=== PATIENT | female | born 1955 | race Two or more races ===

== ENCOUNTER 2020-04-18 07:21 | Outpatient (REF) | payer OTHER, SELFPAY | END 2020-04-18 07:22 | disposition home or self-care (01) | LOC: HO.LAB 07:21 | PROVIDERS: Visit Provider Internal Medicine | DX: Z20.828 Contact with and (suspected) exposure to other viral communicable diseases (principal) | CPT/HCPCS: C9803; U0003 ==

== ENCOUNTER 2020-04-24 10:17 | Emergency (ER) | payer OTHER, SELFPAY ==
--- NOTE | 2020-04-24 10:41 | ED.DIZZY ---
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 Mode of arrival: ambulatory Limitations: no limitations History of Present Illness MD elicited complaint: dizziness and lightheadedness Onset (ago): week(s) (2) Timing: gradual onset and intermittent Severity: moderate Description: lightheadedness Context: other (feels dehydrated) History of similar symptoms: Yes Exacerbating factors: change in body position Relieving factors: remaining still Associated symptoms: nausea and malaise Related Data Previous Rx's Medication Instructions Recorded meclizine 25 mg PO TID PRN #30 tab 04/24/20 ondansetron 4 mg PO Q8H PRN #20 tab 04/24/20 Allergies Allergy/AdvReac Type Severity Reaction Status Date / Time aspirin [Aspirin] Allergy Intermediate HIVES, rash Unverified 02/27/20 16:17 Review of Systems Review of Systems: Constitutional : No Weight loss, No Fever, No Chills, pos Fatigue, pos Malaise ENT/Mouth : No sore throat, No Rhinorrhea Eyes: No Eye Pain, No Swelling, No Redness Cardiovascular : No Chest Pain, No SOB, No Dyspnea on Exertion, No Orthopnea, No Edema, No Palpitations Respiratory : No Cough, No Sputum, No Wheezing Gastrointestinal : pos Nausea, No Vomiting, No Diarrhea, No Constipation, No abdominal Pain, No Hematochezia, No Melena Genitourinary : No Dysuria, No Urinary Frequency, No Hematuria, Musculoskeletal : No joint pain, No Myalgias, No Joint Swelling Skin : No Skin Lesions, No rash Neuro : No Weakness, No Numbness, pos Dizziness, No Headache Psych : No Anxiety/Panic, No Depression All other systems reviewed and are negative [facility] Past Medical History Attestation statement: The following information was validated with the patient. Medical History (Updated 04/24/20 @ 13:26 by Dolores Gomez DO) Fibromyalgia Surgical History (Updated 04/24/20 @ 11:02 by Dolores Gomez DO) H/O: hysterectomy Social History Social History (Updated 04/24/20 @ 11:02 by Dolores Gomez DO) Alcohol intake: never Smoking Status: Never smoker Use of substances other than those prescribed or required for medical reasons: No Advance Directives: No Advance Directives Information Provided: Yes Physical Exam Vital Signs: Vital Signs: Last Vital Signs Temp 98 F 04/24/20 12:00 Pulse 78 04/24/20 12:00 Resp 16 04/24/20 12:00 BP 118/68 04/24/20 12:00 Pulse Ox 99 04/24/20 12:00 Body Mass Index 32.9 Appearance: Alert. Oriented X3. No acute distress. Eyes: Pupils equal, round and reactive to light. ENT: Pharynx normal. Neck: Normal inspection. Neck supple. CVS: Normal heart rate and rhythm. Pulses normal. Respiratory: No respiratory distress. Breath sounds normal. Abdomen: Soft and nontender. Skin: Skin warm and dry. Normal skin color. Normal skin turgor. Extremities: No lower extremity edema. No calf ttp Neuro: Oriented X 3. No motor deficit. No sensory deficit. Course Course Course Narrative: no acute findings stable for DC, negative ortho VS feels much better, stable for DC MDM - Dizziness MDM Narrative Medical decision making narrative: 65 yo female with hx of fibromyalgia here with 2 weeks feels dehydrated with nausea, has benign abdominal exam, no neuro deficits, feeling lightheaded is positional, no GIB symptoms no CP/SOB will hydrate and obtain ortho VS, EKG, labs, dispo per results and findings. Lab Data Result diagrams: 04/24/20 11:16 04/24/20 11:16 Labs: Lab Results 04/24/20 04/24/20 04/24/20 Range/Units 11:16 11:16 11:16 WBC 4.9 (4.8-10.8) X10*3/uL RBC 4.66 (4.20-5.50) X10*6/uL Hgb 12.5 (12.0-16.0) g/dl Hct 38.2 (37-47) % MCV 82.0 (80-98) fL MCH 26.8 L (27.0-33.0) pg MCHC 32.7 (31.0-35.0) g/dl RDW 12.9 (11.0-16.0) % Plt Count 290 (160-400) X10*3/uL MPV 10.0 (9.4-12.3) fL Immature Gran % (Auto) 0.4 (0.0-0.4) % Neut % (Auto) 61.3 (45-73) % Lymph % (Auto) 27.0 (20-40) % [place] % (Auto) 9.9 (2-11) % Eos % (Auto) 1.0 (0-4) % Baso % (Auto) 0.4 (0-2) % Lymph # (Auto) 1.3 (1.2-4.9) X10*3/uL [place] # (Auto) 0.5 (0.1-1.2) X10*3/uL Eos # (Auto) 0.1 (0.0-0.4) X10*3/uL Baso # (Auto) 0.0 (0.0-0.2) X10*3/uL Abs Immat Gran (auto) 0.02 (0.00-0.03) X10*3/uL Absolute Neuts (auto) 3.0 (2.0-8.3) X10*3/uL Absolute Nucleated RBC 0.000 (0.0-0.012) X10*3/uL Nucleated RBC % (auto) 0.0 (0.0-0.2) /100WBC Hold Blue Top SEE NOTE Sodium 140 (135-145) mmol/L Potassium 3.9 (3.3-5.1) mmol/l Chloride 106 (96-108) mmol/L Carbon Dioxide 25 (22-29) mmol/L Anion Gap 13 (12-20) BUN 11 (9-16) mg/dL Creatinine 0.64 (0.5-1.4) mg/dL Estim Creat Clear Calc 78.8 Estimated GFR > 60 Random Glucose 86 (60-115) mg/dL Calcium 8.4 (8.4-10.2) mg/dL Magnesium 2.2 (1.6-2.6) mg/dL Total Bilirubin 0.7 (0.0-1.0) mg/dL Direct Bilirubin 0.3 (0.0-0.5) mg/dL AST 16 (5-31) U/L ALT 15 (0-31) U/L Alkaline Phosphatase 76 (39-117) U/L Troponin I High Sens (<3.5-17.0) ng/L Total Protein 6.4 L (6.5-8.0) g/dL Albumin 3.8 (3.5-5.0) g/dL Urine Color Urine Appearance Urine pH (5.0-8.0) Ur Specific [place] (1.005-1.025) Urine Protein (NEG-TRACE) MG/DL Urine Glucose (UA) (NEG) MG/DL Urine Ketones (NEG) MG/DL Urine Blood (NEG) Urine Nitrite (NEG) Ur Leukocyte Esterase (NEG) 04/24/20 04/24/20 Range/Units 11:16 12:49 WBC (4.8-10.8) X10*3/uL RBC (4.20-5.50) X10*6/uL Hgb (12.0-16.0) g/dl Hct (37-47) % MCV (80-98) fL MCH (27.0-33.0) pg MCHC (31.0-35.0) g/dl RDW (11.0-16.0) % Plt Count (160-400) X10*3/uL MPV (9.4-12.3) fL Immature Gran % (Auto) (0.0-0.4) % Neut % (Auto) (45-73) % Lymph % (Auto) (20-40) % [place] % (Auto) (2-11) % Eos % (Auto) (0-4) % Baso % (Auto) (0-2) % Lymph # (Auto) (1.2-4.9) X10*3/uL [place] # (Auto) (0.1-1.2) X10*3/uL Eos # (Auto) (0.0-0.4) X10*3/uL Baso # (Auto) (0.0-0.2) X10*3/uL Abs Immat Gran (auto) (0.00-0.03) X10*3/uL Absolute Neuts (auto) (2.0-8.3) X10*3/uL Absolute Nucleated RBC (0.0-0.012) X10*3/uL Nucleated RBC % (auto) (0.0-0.2) /100WBC Hold Blue Top Sodium (135-145) mmol/L Potassium (3.3-5.1) mmol/l Chloride (96-108) mmol/L Carbon Dioxide (22-29) mmol/L Anion Gap (12-20) BUN (9-16) mg/dL Creatinine (0.5-1.4) mg/dL Estim Creat Clear Calc Estimated GFR Random Glucose (60-115) mg/dL Calcium (8.4-10.2) mg/dL Magnesium (1.6-2.6) mg/dL Total Bilirubin (0.0-1.0) mg/dL Direct Bilirubin (0.0-0.5) mg/dL AST (5-31) U/L ALT (0-31) U/L Alkaline Phosphatase (39-117) U/L Troponin I High Sens < 3.5 (<3.5-17.0) ng/L Total Protein (6.5-8.0) g/dL Albumin (3.5-5.0) g/dL Urine Color YELLOW Urine Appearance HAZY Urine pH 6.5 (5.0-8.0) Ur Specific [place] 1.015 (1.005-1.025) Urine Protein NEG (NEG-TRACE) MG/DL Urine Glucose (UA) NEG (NEG) MG/DL Urine Ketones 15 (NEG) MG/DL Urine Blood NEG (NEG) Urine Nitrite NEG (NEG) Ur Leukocyte Esterase NEG (NEG) ECG Data Attestation: I personally reviewed and interpreted this ECG as follows: ECG interpretation date: 04/24/20 ECG interpretation time: 11:02 Interpretation: Rate: 78 Rhythm: NSR [place]: normal Normal P waves. Normal WILLIAM. Normal QRS complex. ST T wave : normal qTC: normal prior studies: no acute ischemia The study has been interpreted contemporaneously by me. . Discharge Plan Discharge Clinical Impression: Acute dehydration Patient Disposition: Home, Self-Care Instructions: Dehydration (ED) Additional Instructions: return to ED for any worsening symptoms or concerns Prescriptions: New meclizine 25 mg tablet 25 mg PO TID PRN (Reason: dizziness) Qty: 30 RF: 0 ondansetron 4 mg tablet,disintegrating 4 mg PO Q8H PRN (Reason: nausea and vomiting) Qty: 20 RF: 0 Referrals: Danae Sy MD [Primary Care Provider] - 2 days (if not better) Print Language: Norwegian
--- NOTE | 2020-04-24 10:45 | ECG_ITS ---
Test Reason : SOB Blood Pressure : / mmHG Vent. Rate : 078 BPM Atrial Rate : 078 BPM P-R Int : 128 ms QRS Dur : 078 ms QT Int : 382 ms P-R-T Axes : 012 018 021 degrees QTc Int : 435 ms Normal sinus rhythm Normal ECG When compared with ECG of 10-MAR-2012 15:39, No significant change was found Referred By: Dolores Gomez Electronically Signed By:FADY JIMÉNEZ MD
[2020-04-24 10:49] VITALS: BP 140/65; PULSE 87; RESP 18; TEMP 36.8; O2SAT 98; BMI 32.9
[2020-04-24 11:22] VITALS: BP 115/55; PULSE 71
[2020-04-24 11:22] LABS: MANUAL DIFF FLAG NO
[2020-04-24 11:24] VITALS: BP 118/65; PULSE 98
[2020-04-24 11:26] VITALS: BP 115/75; PULSE 95
[2020-04-24 11:33] LABS: Basophils Percent Auto 0.4 % (0-2); Eosinophils Absolute Auto 0.1 X10*3/uL (0.0-0.4); Hematocrit 38.2 % (37-47); Hemoglobin 12.5 g/dl (12.0-16.0); Imm Gran Abs Auto 0.02 X10*3/uL (0.00-0.03); Imm Gran Pct Auto 0.4 % (0.0-0.4); Lymphocytes Absolute Auto 1.3 X10*3/uL (1.2-4.9); Mean Corpuscular HGB Conc 32.7 g/dl (31.0-35.0); Mean Corpuscular Hemoglobin 26.8 pg (27.0-33.0); Monocytes Absolute Auto 0.5 X10*3/uL (0.1-1.2); Monocytes Percent Auto 9.9 % (2-11); Neutrophils Percent Auto 61.3 % (45-73); Platelet Count 290 X10*3/uL (160-400); Red Blood Count 4.66 X10*6/uL (4.20-5.50); Red Cell Distribution Width 12.9 % (11.0-16.0); White Blood Count 4.9 X10*3/uL (4.8-10.8)
[2020-04-24] MEDS: ondansetron HCL 4 MG/2 ML VIAL IVPUSH (11:45)
[2020-04-24] MEDS: 0.9 % Sodium Chloride 1,000 ML 999 ML IVCONT (11:45)
[2020-04-24 11:48] LABS: Alanine Aminotransferase 15 U/L (0-31); Albumin Level 3.8 g/dL (3.5-5.0); Alkaline Phosphatase 76 U/L (39-117); Anion Gap 13 (12-20); Aspartate Amino Transferase 16 U/L (5-31); Bilirubin Direct 0.3 mg/dL (0.0-0.5); Bilirubin Total 0.7 mg/dL (0.0-1.0); Blood Urea Nitrogen 11 mg/dL (9-16); Calcium 8.4 mg/dL (8.4-10.2); Carbon Dioxide 25 mmol/L (22-29); Chloride 106 mmol/L (96-108); Creatinine Clr Calc Pharmacy 78.8; Estimated Glomerular Filt Rate > 60; Glucose Random 86 mg/dL (60-115); Magnesium 2.2 mg/dL (1.6-2.6); Potassium 3.9 mmol/l (3.3-5.1); Sodium 140 mmol/L (135-145); Total Protein 6.4 g/dL (6.5-8.0)
[2020-04-24 11:55] LABS: Troponin-I High Sensitivity < 3.5 ng/L (<3.5-17.0)
[2020-04-24 12:00] VITALS: BP 118/68; PULSE 78; RESP 16; TEMP 36.6; O2SAT 99
[2020-04-24 12:57] LABS: Glucose Urine UA NEG (NEG); Leukocyte Esterase Urine NEG (NEG); Nitrite Urine NEG (NEG); PH 6.5 (5.0-8.0); Specific Gravity - Urine 1.015 (1.005-1.025); Urine Blood NEG (NEG); Urine Ketones 15 MG/DL (NEG); Urine Protein NEG (NEG-TRACE)
[2020-04-24 13:00] LABS: Appearance Urine HAZY; Color Urine YELLOW
== END 2020-04-24 14:21 | disposition home or self-care (01) ==
PROVIDERS: Emergency Provider Emergency Medicine; PCP Pediatrics
DX: E86.0 Dehydration (principal); R42 Dizziness and giddiness; Z79.899 Other long term (current) drug therapy
CPT/HCPCS: 36415; 80048; 80076; 81003; 83735; 84484; 85025; 93005; 96361; 96374; 99284; J2405

== ENCOUNTER 2020-11-17 09:00 | Outpatient (REF) | payer OTHER, SELFPAY ==
--- NOTE | ~2020-11-17 | MM_ITS ---
EXAMINATION: MM SCREENING DIGITAL BREAST TOMOSYNTHESIS, BILATERAL CLINICAL INFORMATION: Screening. Asymptomatic. The lifetime risk of breast cancer based on the Tyrer-Cuzick Model is 5%. COMPARISON: Mammography: 09/26/2019, 04/22/2019, 12/14/2017; targeted left breast ultrasound 09/26/2019 TECHNIQUE: Digital breast tomosynthesis is performed in both the craniocaudal and mediolateral oblique views along with computer-aided detection (CAD). Synthesized 2D images are generated from the tomosynthesis. FINDINGS: There are scattered areas of fibroglandular density (ACR BI-RADS breast composition Category b). There are no significant masses, abnormal calcifications, or other abnormalities. Parenchymal pattern is similar to prior studies. No developing density. The axilla and skin contours are unremarkable. MM/MM tomosynthesis screening BI IMPRESSION: No mammographic evidence of malignancy. ASSESSMENT: BI-RADS 1: Negative RECOMMENDATION: Routine annual mammography screening. This patient's information was entered into a reminder system with a target due date for their next mammogram.
== END 2020-11-17 09:01 | disposition home or self-care (01) ==
LOC: HO.MAMMO 09:00
PROVIDERS: Visit Provider Pediatrics
DX: Z12.31 Encounter for screening mammogram for malignant neoplasm of breast (principal)
CPT/HCPCS: 77063; 77067

== ENCOUNTER 2020-12-04 14:09 | Outpatient (REF) | payer OTHER, SELFPAY ==
--- NOTE | ~2020-12-04 | MM_ITS ---
EXAMINATION: BONE DENSITOMETRY CLINICAL INDICATION: Encounter for screening for osteoporosis, postmenopausal. COMPARISON: Baseline BD dated 05/03/2016. TECHNIQUE: Using a [employer] DXA System (software version: 13.1) manufactured by [employer], dual-energy x-ray absorptiometry was performed of the lumbar spine and left hip. The images are of good technical quality. Summary results are attached. FINDINGS: AP SPINE L1-L4: Current: BMD 1.152 g/cm2, Z-score 0.7, T-score -0.2, normal, 2.5% increase from baseline (<5% change is not significant). Baseline: BMD 1.124 g/cm2. LEFT FEMUR, NECK: Current: BMD 1.023 g/cm2, Z-score 0.9, T-score -0.1, normal. Baseline: BMD 1.036 g/cm2. LEFT FEMUR, TOTAL: Current: BMD 1.055 g/cm2, Z-score 1.1, T-score 0.4, normal, 1.3% decrease from baseline (<5% change is not significant). Baseline: BMD 1.069 g/cm2. IDENTIFIED RISK FACTORS: Secondary osteoporosis, (early menopause). Anticonvulsant. Bilateral oophorectomy. Hysterectomy. Thiazide. HISTORY OF FRACTURE: None listed. MEDICATIONS: Vitamin D. MM/XR DEXA axial skeleton IMPRESSION: 1. DIAGNOSIS: Normal bone density based on the lowest T-score value of -0.2 in the lumbar spine applying World Health Organization criteria. 2. 10-YEAR FRACTURE RISK PREDICTION, FRAX: Major osteoporotic fracture (clinical spine, forearm, hip or shoulder) 3.4%. Hip fracture 0.1%. 3. Treatment Recommendations: NOF guidelines recommend consideration for treatment in postmenopausal women and men age 50 and older presenting with the following: -A hip or vertebral (clinical or morphometric) fracture. -T-score less than or equal to -2.5 at the femoral neck or spine after appropriate evaluation to exclude secondary causes. -Low bone mass at the hip or spine and a 10-year fracture probability by FRAX of greater than or equal to 3% for hip fracture or greater than or equal to 20% for major osteoporotic fracture based on the [place] adapted WHO algorithm. 4. Other Recommendations: All treatment decisions require clinical judgment and consideration of individual patient factors, including patient preferences, comorbidities, previous drug use, risk factors not captured in the FRAX model (e.g. frailty, falls, vitamin D deficiency, increased bone turnover, interval significant decline in bone density) and possible under or overestimation of fracture risk by FRAX. FUTURE SCAN RECOMMENDATION: People with diagnosed cases of osteoporosis or at high risk for fracture should have regular bone mineral density tests. For patients eligible for Medicare, routine testing is allowed once every 2 years. The testing frequency can be increased to one year for patients who have rapidly progressing disease, those who are receiving or discontinuing medical therapy to restore bone mass, or have additional risk factors.
== END 2020-12-04 14:10 | disposition home or self-care (01) ==
LOC: HO.MAMMO 14:09
PROVIDERS: Visit Provider Pediatrics
DX: Z13.820 Encounter for screening for osteoporosis (principal); M81.0 Age-related osteoporosis without current pathological fracture; Z78.0 Asymptomatic menopausal state; Z98.890 Other specified postprocedural states; Z79.899 Other long term (current) drug therapy
CPT/HCPCS: 77080

== ENCOUNTER 2020-12-30 13:40 | Emergency (ER) | payer OTHER, SELFPAY ==
[2020-12-30 13:47] VITALS: BP 136/65; PULSE 87; RESP 16; TEMP 36.9; O2SAT 98; BMI 34.3
--- NOTE | 2020-12-30 17:53 | ED_ITS ---
HPI - General Adult General Chief complaint: Allergic Reaction Stated complaint: eye pain Time Seen by Provider: 12/30/20 17:52 Related Data Previous Rx's Medication Instructions Recorded meclizine 25 mg PO TID PRN #30 tab 04/24/20 ondansetron 4 mg PO Q8H PRN #20 tab 04/24/20 cephalexin 500 mg PO QID 7 Days #28 cap 12/30/20 diphenhydramine HCl [Benadryl] 25 mg PO BEDTIME PRN #20 cap 12/30/20 loratadine 10 mg PO DAILY #20 tab 12/30/20 prednisone 40 mg PO DAILY 5 Days #10 tab 12/30/20 Allergies Allergy/AdvReac Type Severity Reaction Status Date / Time aspirin [Aspirin] Allergy Intermediate HIVES, rash Verified 12/30/20 13:50 Review of Systems Review of Systems: Constitutional : No Weight loss, No Fever, No Chills, No Night Sweats, No Fatigue, No Malaise ENT/Mouth : No Hearing loss, No Ear Pain, No Nasal Congestion, No Sinus Pain, No Hoarseness, No sore throat, No Rhinorrhea, No Swallowing Difficulty Eyes: No Eye Pain, No Swelling, No Redness, No Foreign Body, No Discharge, No Vision Changes Respiratory : No Cough, No Sputum, No Wheezing, No Smoke Exposure, No Dyspnea Musculoskeletal : No joint pain, No Myalgias, No Joint Swelling Skin : No Skin Lesions, No rash Neuro : No Weakness, No Numbness, No Paresthesias, No Loss of Consciousness, No Dizziness, No Headache Psych : No Anxiety/Panic, No Depression, No SI/HI/AH/VH, No Social Issues, Heme/Lymph: No Bruising, No Bleeding,No Lymphadenopathy Endocrine : No Polyuria, No Polydipsia, No Temperature Intolerance Yes all other systems are reviewed and are negative [facility] Past Medical History Medical History (Updated 12/31/20 @ 00:02 by Carole Alexandre) Fibromyalgia Surgical History H/O: hysterectomy Social History Social History (Updated 04/24/20 @ 11:02 by Dolores Gomez DO) Alcohol intake: never Advance Directives: No Advance Directives Information Provided: Yes Physical Exam Vital Signs: Vital Signs: Last Vital Signs Temp 98.4 F 12/30/20 13:47 Pulse 87 12/30/20 13:47 Resp 16 12/30/20 13:47 BP 136/65 12/30/20 13:47 Pulse Ox 98 12/30/20 13:47 Body Mass Index 34.3 Const: General: healthy appearing, no acute distress and well developed Nutritional Appearance: well nourished Orientation/consciousness: patient oriented x3 Eyes: Other: periorbital edema and redness bilaterally. Watery eyes. Conjunctivae: conjunctivae normal Sclerae: sclerae normal Corneas: corneas normal Pupils: Equal, round and reactive pupils present EOM: EOMs intact bilaterally Neck: Neck: Yes normal visual inspection, Yes full ROM and Yes trachea midline Thyroid: Thyroid normal Resp: Auscultation: clear to auscultation bilaterally Cardio: Rate: regular rate Rhythm: regular rhythm GI: Inspection: Yes normal to inspection and No distended Palpation (GI): No hepatosplenomegaly present Auscultation: normal bowel sounds Skin: General skin exam: elasticity normal, turgor normal and dry skin Neuro: General: patient oriented x3 Cranial nerves: Yes Equal, round and reactive pupils present Course Course Course Narrative: 65-year-old female is here today for complaining of bilateral eyes itchy and red for the last few days. patient reports that she does have allergies and is not taking anything for it. I will medicate her with loratadine, prednisone, cephalexin. Patient will be sent home with script for loratadine, prednisone, cephalexin. She will follow-up with her PCP in 2-3 days. Patient denies any other symptoms. Denies tinnitus, headaches, dizziness, cough or any respiratory symptoms. Patient will return if her symptoms get worse. Patient is agreeable to plan of care and verbalizes understanding of instructions. She was given the opportunity to ask questions and all questions answered. Discharge Plan Discharge Clinical Impression: Contact dermatitis, Complaint of seasonal allergic reaction Patient Disposition: Home, Self-Care Instructions: Allergies (ED) Additional Instructions: Hoy te vieron aqu? por enrojecimiento y picaz?n en los ojos. Le dieron medicamentos para ayudar con mitchel alergias. Lo enviar?n a casa con medicamentos para la alergia, as? meet con prednisona y antibi?ticos. Tambi?n puede isidro Benadryl para ayudar con las alergias rogers la noche. [place]lynn un seguimiento con garibay PCP en 2-3 d?as. Puede regresar al departamento de emergencias si mitchel s?ntomas empeoran o si experimenta alg?n s?ntoma adicional preocupante Prescriptions: New loratadine 10 mg tablet 10 mg PO DAILY Qty: 20 RF: 0 prednisone 20 mg tablet 40 mg PO DAILY 5 Days Qty: 10 RF: 0 cephalexin 500 mg capsule 500 mg PO QID 7 Days Qty: 28 RF: 0 diphenhydramine HCl [Benadryl] 25 mg capsule 25 mg PO BEDTIME PRN (Reason: allergic reaction) Qty: 20 RF: 0 No Action meclizine 25 mg tablet 25 mg PO TID PRN (Reason: dizziness) Qty: 30 RF: 0 ondansetron 4 mg tablet,disintegrating 4 mg PO Q8H PRN (Reason: nausea and vomiting) Qty: 20 RF: 0 Interventions: ED Discharge Assessment Last Done: 12/30/20 18:27 Discharge Date/Time: 12/30/20 18:28
[2020-12-30] MEDS: cephALEXin 500 MG CAPSULE PO (18:25)
[2020-12-30] MEDS: predniSONE 20 MG TABLET 40 MG PO (18:25)
[2020-12-30] MEDS: Loratadine 10 MG TABLET PO (18:25)
== END 2020-12-30 18:28 | disposition home or self-care (01) ==
PROVIDERS: Emergency Provider Emergency Medicine; PCP Pediatrics
DX: L25.9 Unspecified contact dermatitis, unspecified cause (principal); Z91.09 Other allergy status, other than to drugs and biological substances
CPT/HCPCS: 99283

== ENCOUNTER 2021-01-22 09:59 | Outpatient (REF) | payer OTHER, SELFPAY ==
--- NOTE | ~2021-01-22 | XR_ITS ---
EXAMINATION: XR LUMBOSACRAL SPINE WITH OBLIQUES CLINICAL INFORMATION: Back pain with left-sided sciatica. COMPARISON: Lumbar spine radiographs dated 04/25/2014. TECHNIQUE: AP, lateral, coned down, and bilateral oblique views of the lumbar spine. FINDINGS: There appears to be transitional anatomy with partial sacralization of the L5 vertebral body, unchanged. No acute fracture or subluxation. No loss of vertebral body height. Mild multilevel loss of intervertebral disc height with small endplate osteophytes. Lower lumbar spine facet arthropathy. No lytic or blastic osseous lesion. No abnormal soft tissue calcification. XR/XR lumbar spine 4V min IMPRESSION: Mild multilevel degenerative disc disease, slightly progressed when compared to the prior examinations with lower lumbar spine facet arthropathy.
== END 2021-01-22 10:00 | disposition home or self-care (01) ==
LOC: HO.XRAY 09:59
PROVIDERS: PCP Pediatrics; Visit Provider General Practice
DX: M54.42 Lumbago with sciatica, left side (principal)
CPT/HCPCS: 72110

== ENCOUNTER 2021-02-18 10:04 | Outpatient (RCR) | payer OTHER, SELFPAY | END 2021-02-25 14:23 | disposition home or self-care (01) | LOC: HO.PT 10:04 | PROVIDERS: PCP Pediatrics; Visit Provider General Practice | DX: M54.42 Lumbago with sciatica, left side (principal) | CPT/HCPCS: 97110; 97112; 97161 ==

== ENCOUNTER → 2021-04-29 14:58 | Outpatient (BNVA) | payer OTHER, SELFPAY | PROVIDERS: PCP Pediatrics; Visit Provider Surgery Vascular Surgery | DX: I83.12 Varicose veins of left lower extremity with inflammation (principal); M79.7 Fibromyalgia; Z88.6 Allergy status to analgesic agent; Z79.52 Long term (current) use of systemic steroids; Z79.899 Other long term (current) drug therapy | CPT/HCPCS: 99212 ==

== ENCOUNTER 2021-05-19 08:03 | Outpatient (REF) | payer OTHER, SELFPAY ==
--- NOTE | ~2021-05-19 | US_ITS ---
EXAMINATION: BILATERAL LOWER EXTREMITY VENOUS ULTRASOUND (Reflux Exam) CLINICAL INDICATION: Varicose veins of left lower extremity with inflammation. COMPARISON: None. TECHNIQUE: Color-flow triplex imaging and compression Doppler was performed to evaluate both the deep and the superficial systems bilaterally. To evaluate the superficial system, the examination was performed in the upright position. Color-flow Doppler ultrasound and compression ultrasound were utilized. In addition, maneuvers were utilized to demonstrate reflux. FINDINGS: - SUPERFICIAL ULTRASOUND WITH DOPPLER OF RIGHT LOWER EXTREMITY GREAT SAPHENOUS VEIN: Saphenofemoral junction: 0.8 cm; Reflux: No evidence of reflux. Max diameter: 0.8 cm Min diameter: 0.2 cm Reflux: No evidence of reflux. DUPLICATED MEDIAL GREAT SAPHENOUS VEIN: Max Diameter: None imaged. Reflux: NA. DUPLICATED LATERAL GREAT SAPHENOUS VEIN: Diameter: 0.3 cm proximally. Reflux: None. SMALL SAPHENOUS VEIN: Not seen. VEIN OF GIACOMINI: None imaged. PERFORATORS: Location: Proximal calf, 2 mm. Reflux: None. VARICOSITIES: Location: Proximal thigh, 3 mm. Reflux: None. - DEEP VENOUS ULTRASOUND OF THE RIGHT LOWER EXTREMITY: Common Femoral Vein: Compressible, normal respiratory variation and augmented flow. Femoral Vein: Compressible, normal color-flow and augmentation. Popliteal Vein: Compressible, normal augmentation. Deep Reflux: There is no evidence of reflux in the deep system in either the common femoral vein or the popliteal vein. Evans's Cyst: There is no evidence of a Evans's cyst. - SUPERFICIAL ULTRASOUND WITH DOPPLER OF LEFT LOWER EXTREMITY GREAT SAPHENOUS VEIN: Saphenofemoral junction: 0.7 cm; Reflux: No evidence of reflux. Max diameter: 0.7 Min diameter: 0.1 Reflux: There is segmental reflux at the proximal thigh up to 0.7 seconds. DUPLICATED MEDIAL GREAT SAPHENOUS VEIN: Max Diameter: None imaged. Reflux: NA. DUPLICATED LATERAL GREAT SAPHENOUS VEIN: Diameter: 0.2 proximally. Reflux: None. SMALL SAPHENOUS VEIN: Not visualized. VEIN OF GIACOMINI: None imaged. PERFORATORS: Location: Proximal calf, 1 mm. Reflux: None. VARICOSITIES: Location: Proximal thigh, 3 mm. Reflux: None. - DEEP VENOUS ULTRASOUND OF THE LEFT LOWER EXTREMITY: Common Femoral Vein: Compressible, normal respiratory variation and augmented flow. Femoral Vein: Compressible, normal color-flow and augmentation. Popliteal Vein: Compressible, normal augmentation. Deep Reflux: There is 0.8 seconds of reflux at the common femoral vein. Evans's Cyst: There is no evidence of a Evans's cyst. US/US venous duplex LE BI IMPRESSION: 1. Segmental left great saphenous venous insufficiency at the proximal thigh. 2. No right great saphenous venous insufficiency. 3. Neither small saphenous vein is identified. 4. Bilateral non-refluxing varicosities. 5. Deep venous insufficiency involving the left common femoral vein. 6. No evidence of DVT.
== END 2021-05-19 08:04 | disposition home or self-care (01) ==
LOC: HO.US 08:03
PROVIDERS: PCP Pediatrics; Visit Provider Surgery Vascular Surgery
DX: I83.12 Varicose veins of left lower extremity with inflammation (principal)
CPT/HCPCS: 93970

== ENCOUNTER → 2021-06-08 13:38 | Outpatient (BNVA) | payer OTHER, SELFPAY | PROVIDERS: PCP Pediatrics; Visit Provider Surgery Vascular Surgery | DX: I83.12 Varicose veins of left lower extremity with inflammation (principal) | CPT/HCPCS: 99212 ==

== ENCOUNTER 2021-08-12 12:21 | Outpatient (REF) | payer OTHER, SELFPAY ==
--- NOTE | ~2021-08-12 | XR_ITS ---
EXAMINATION: KNEE X-RAY CLINICAL INFORMATION: Pain COMPARISON: Previous x-rays of the right knee August 2016 and left knee February 2018 TECHNIQUE: Standing AP, lateral and sunrise view of both knees FINDINGS: Right: Bone alignment is normal. No fracture or dislocation is seen. There is arthritis at the medial femoral tibial and patellofemoral joints with joint space narrowing and osteophyte formation. There is a small joint effusion. Left: Bone alignment is normal. No fracture or dislocation is seen. There are small osteophytes at the patellofemoral joint. There is no joint effusion. There is a small osteophyte at the quadriceps tendon insertion to the patella. XR/XR knee LT 2V IMPRESSION: Degenerative changes, right greater than left.
--- NOTE | ~2021-08-12 | XR_ITS ---
EXAMINATION: KNEE X-RAY CLINICAL INFORMATION: Pain COMPARISON: Previous x-rays of the right knee August 2016 and left knee February 2018 TECHNIQUE: Standing AP, lateral and sunrise view of both knees FINDINGS: Right: Bone alignment is normal. No fracture or dislocation is seen. There is arthritis at the medial femoral tibial and patellofemoral joints with joint space narrowing and osteophyte formation. There is a small joint effusion. Left: Bone alignment is normal. No fracture or dislocation is seen. There are small osteophytes at the patellofemoral joint. There is no joint effusion. There is a small osteophyte at the quadriceps tendon insertion to the patella. XR/XR knee RT 2V IMPRESSION: Degenerative changes, right greater than left.
--- NOTE | ~2021-08-12 | XR_ITS ---
EXAMINATION: KNEE X-RAY CLINICAL INFORMATION: Pain COMPARISON: Previous x-rays of the right knee August 2016 and left knee February 2018 TECHNIQUE: Standing AP, lateral and sunrise view of both knees FINDINGS: Right: Bone alignment is normal. No fracture or dislocation is seen. There is arthritis at the medial femoral tibial and patellofemoral joints with joint space narrowing and osteophyte formation. There is a small joint effusion. Left: Bone alignment is normal. No fracture or dislocation is seen. There are small osteophytes at the patellofemoral joint. There is no joint effusion. There is a small osteophyte at the quadriceps tendon insertion to the patella. XR/XR knee standing BI IMPRESSION: Degenerative changes, right greater than left.
== END 2021-08-12 12:22 | disposition home or self-care (01) ==
LOC: HO.HOSX 12:21
PROVIDERS: Visit Provider Orthopaedic Surgery
DX: M17.11 Unilateral primary osteoarthritis, right knee (principal)
CPT/HCPCS: 20610; 73560; 73565; 99202; J1100

== ENCOUNTER → 2021-11-26 11:33 | Outpatient (BNVA) | payer OTHER, SELFPAY | PROVIDERS: PCP Pediatrics; Visit Provider Orthopaedic Surgery | DX: M17.11 Unilateral primary osteoarthritis, right knee (principal) | CPT/HCPCS: 99212 ==

== ENCOUNTER 2021-11-29 16:19 | Outpatient (REF) | payer OTHER, SELFPAY ==
--- NOTE | ~2021-11-29 | XR_ITS ---
EXAMINATION: XR ANKLE, RIGHT CLINICAL INFORMATION: Sprain COMPARISON: None TECHNIQUE: AP, lateral, and mortise views of the right ankle. FINDINGS: Bone alignment is normal. No fracture or dislocation is seen. The ankle mortise is normal. There are calcaneal spurs. Soft tissues are otherwise normal. XR/XR ankle RT 2V IMPRESSION: Calcaneal spurs otherwise unremarkable exam.
== END 2021-11-29 16:20 | disposition home or self-care (01) ==
LOC: HO.XRAY 16:19
PROVIDERS: PCP Pediatrics; Visit Provider Pediatrics
DX: S93.401A Sprain of unspecified ligament of right ankle, initial encounter (principal)
CPT/HCPCS: 73600

== ENCOUNTER → 2022-04-18 11:52 | Outpatient (BNVA) | payer OTHER, SELFPAY | PROVIDERS: PCP Pediatrics; Visit Provider Orthopaedic Surgery | DX: M17.11 Unilateral primary osteoarthritis, right knee (principal) | CPT/HCPCS: 20610; 99212; J1100 ==

== ENCOUNTER 2023-01-06 08:33 | Outpatient (REF) | payer OTHER, SELFPAY ==
--- NOTE | ~2023-01-06 | MM_ITS ---
EXAMINATION: MM SCREENING DIGITAL BREAST TOMOSYNTHESIS, BILATERAL CLINICAL INFORMATION: Screening. Asymptomatic. The lifetime risk of breast cancer based on the Tyrer-Cuzick Model is 4%. COMPARISON: Mammography: 11/17/2020, and dating back to 2017. TECHNIQUE: Digital breast tomosynthesis is performed in both the craniocaudal and mediolateral oblique views along with computer-aided detection (CAD). Synthesized 2D images are generated from the tomosynthesis. FINDINGS: The breasts are heterogeneously dense, which may obscure small masses (ACR BI-RADS breast composition Category c). There is a stable somewhat nodular heterogeneously dense parenchymal pattern in both breasts. The overall appearance has remained unchanged as far back as 2017. There are 2 stable nodular asymmetries in the anterior left breast at the approximate 8:00 position, anterior one third, which proved to represent small cysts on previous ultrasound. There is an unchanged parenchymal asymmetry in the left breast CC view far medial, middle one third, unchanged and benign. There are no findings suspicious for malignancy. MM/MM tomosynthesis screening BI IMPRESSION: No mammographic evidence of malignancy. Stable benign findings as detailed. ASSESSMENT: BI-RADS BI-RADS 2 - Benign Findings RECOMMENDATION: Routine annual mammography screening. 1 year F/U This examination should not preclude the clinical evaluation of a suspicious palpable abnormality. This patient's information was entered into a reminder system with a target due date for their next mammogram.
--- NOTE | ~2023-01-06 | MM_ITS ---
EXAMINATION: BONE DENSITOMETRY CLINICAL INDICATION: Osteopenia. COMPARISON: Previous BD dated 12/04/2020 and baseline BD dated 05/03/2016. TECHNIQUE: Using a [employer] DXA System (software version: 13.1) manufactured by [employer], dual-energy x-ray absorptiometry was performed of the lumbar spine and left hip. The images are of good technical quality. Summary results are attached. FINDINGS: LEFT FEMUR, NECK: Current: BMD 1.015 g/cm2, Z-score 1.1, T-score -0.2, normal. Prior: BMD 1.023 g/cm2. Baseline: BMD 1.036 g/cm2. LEFT FEMUR, TOTAL: Current: BMD 1.058 g/cm2, Z-score 1.3, T-score 0.4, normal, 0.3% increase from previous, 1.0% decrease from baseline (<5% change is not significant). Prior: BMD 1.055 g/cm2. Baseline: BMD 1.069 g/cm2. AP SPINE L1-L4: Current: BMD 1.062 g/cm2, Z-score 0.2, T-score -1.0, normal, 7.8% decrease from previous, 5.5% decrease from baseline (<5% change is not significant). Prior: BMD 1.152 g/cm2. Baseline: BMD 1.124 g/cm2. IDENTIFIED RISK FACTORS: Menopause, hysterectomy, bilateral oophorectomy, recurrent falls. HISTORY OF FRACTURE: None listed. MEDICATIONS: Vitamin D. MM/XR DEXA axial skeleton IMPRESSION: 1. DIAGNOSIS: Normal bone density based on the lowest T-score value of -1.0 in the lumbar spine applying World Health Organization criteria. 2. 10-YEAR FRACTURE RISK PREDICTION, FRAX: According to the guidelines, FRAX calculation should only be performed on patients in the osteopenia bone density category. Therefore, FRAX was not performed on this patient. 3. Treatment Recommendations: NOF guidelines recommend consideration for treatment in postmenopausal women and men age 50 and older presenting with the following: -A hip or vertebral (clinical or morphometric) fracture. -T-score less than or equal to -2.5 at the femoral neck or spine after appropriate evaluation to exclude secondary causes. -Low bone mass at the hip or spine and a 10-year fracture probability by FRAX of greater than or equal to 3% for hip fracture or greater than or equal to 20% for major osteoporotic fracture based on the [place] adapted WHO algorithm. 4. Other Recommendations: All treatment decisions require clinical judgment and consideration of individual patient factors, including patient preferences, comorbidities, previous drug use, risk factors not captured in the FRAX model (e.g. frailty, falls, vitamin D deficiency, increased bone turnover, interval significant decline in bone density) and possible under or overestimation of fracture risk by FRAX. FUTURE SCAN RECOMMENDATION: People with diagnosed cases of osteoporosis or at high risk for fracture should have regular bone mineral density tests. For patients eligible for Medicare, routine testing is allowed once every 2 years. The testing frequency can be increased to one year for patients who have rapidly progressing disease, those who are receiving or discontinuing medical therapy to restore bone mass, or have additional risk factors.
== END 2023-01-06 08:34 | disposition home or self-care (01) ==
LOC: HO.MAMMO 08:33
PROVIDERS: PCP Pediatrics; Visit Provider Pediatrics
DX: Z12.31 Encounter for screening mammogram for malignant neoplasm of breast (principal); Z13.820 Encounter for screening for osteoporosis; M85.851 Other specified disorders of bone density and structure, right thigh; Z78.0 Asymptomatic menopausal state
CPT/HCPCS: 77063; 77067; 77080

== ENCOUNTER → 2023-01-06 08:45 | Outpatient (BNV) | payer OTHER, SELFPAY | PROVIDERS: PCP Pediatrics; Visit Provider Radiology Diagnostic Radiology | DX: Z12.31 Encounter for screening mammogram for malignant neoplasm of breast (principal) | CPT/HCPCS: 77063; 77067; 77080 ==

== ENCOUNTER 2023-03-23 12:44 | Outpatient (AMB) | payer OTHER, SELFPAY ==
--- NOTE | 2023-03-23 12:47 | MHC.OFFVIS ---
Intake Intake Visit Reasons: ov- primary osteoarthritis, right knee Intake Note: Amanda is a 67 year old woman who presnets today for a follow up of her right knee, last injected on 04/18/2022. Patient reports that this injetion was helpful and she would like to repeat injection today Allergies aspirin [Aspirin] Allergy (Intermediate, Verified 08/12/21 14:02) HIVES, rash HPI ov- primary osteoarthritis, right knee HPI Details Amanda is a 68 year old woman with bilateral knee OA, who returns with complaints of right knee pain. She has a hx of relief from steroid injections in the past and would like to repeat this injection today. PFSH Medical History Fibromyalgia Surgical History H/O: hysterectomy Social History Alcohol intake: never Review of Systems Const All systems reviewed & are unremarkable except as noted in HPI and below Physical Exam Const General: no acute distress, alert and awake Orientation/consciousness: patient oriented x3 HEENT Head: Yes normocephalic and Yes atraumatic Eyes EOM: EOMs intact bilaterally Resp Effort & Inspection: normal respiratory effort and able to speak in complete sentences Cardio Jugular venous distension: no JVD Skin General skin exam: turgor normal Rashes: no rashes Neuro General: patient oriented x3 Extrem Other: Right Knee: Skin C/D/I No effusion Psych Appearance: grossly normal Affect: normal affect Attitude: cooperative Office Procedures Joint Injection/Drain Joint Injection/Drain Details: Injected 1 mL of Decadron and 3 mL 1% lidocaine and 3 mL of 0.25% Marcaine. Site was prepped using aseptic technique. Patient tolerated the procedure well. Primary Site: right knee Approach Used: anterolateral Coding 36424 - Large joint Procedure code (CPT) selection complete Results Reviewed Results Reviewed: 03/23/23 12:46 Lidocaine HCl 2 % MPF [Xylocaine 2 % MPF] 5 ml .ROUTE .STK-MED ONE 03/23/23 12:47 BUPivacaine MPF 0.25 % [Sensorcaine-MPF 0.25% 10 ML] 10 ml .ROUTE .STK-MED ONE dexAMETHasone sod phosphate [Decadron] 4 mg .ROUTE .STK-MED ONE Assessment & Plan Assessment & Plan (1) Arthritis of right knee: Code(s): M17.11 - Unilateral primary osteoarthritis, right knee Plan: This is a 68 year old woman with right knee OA. She has pain with daily activity and a hx of relief from steroid injections. I injected her right knee today, which she tolerated well. She can follow up prn. Plan Scribed for Ozzy Francisco MD by Anjum Ruiz medical delivery driver, on 03/23/23 at 1:00 PM, EST. Coding Level of Care Code Est Pt Level 3 (28424) Diagnoses Arthritis of right knee M17.11 CPT Codes Coding - 81339 Large joint: 63518 - Large joint ([id number])
== END 2023-03-23 13:03 | disposition home or self-care (01) ==
PROVIDERS: PCP Pediatrics; Visit Provider Orthopaedic Surgery
DX: M17.11 Unilateral primary osteoarthritis, right knee (principal)
CPT/HCPCS: 20610; 99212

== ENCOUNTER → 2023-03-23 12:44 | Outpatient (BNVA) | payer OTHER, SELFPAY | PROVIDERS: PCP Pediatrics; Visit Provider Orthopaedic Surgery | DX: M17.11 Unilateral primary osteoarthritis, right knee (principal) | CPT/HCPCS: 20610; 99212; J1100 ==

== ENCOUNTER 2023-08-31 10:57 | Outpatient (AMB) | payer OTHER, SELFPAY ==
--- NOTE | 2023-08-31 11:01 | A.OFFVIS_ITS ---
Intake Vital Signs 08/31/23 11:05 Height 5 ft 11 in Weight 172 lb BMI 24.0 Intake Visit Reasons: New Prob- Right foot pain Intake Note: Amanda 68 yr old female presents today for her right foot pain. States she fell down on approx around April. She feel on her back and is having pain in her foot as well. She is not sure how she injured her foot. Pain is mainly on her achilles and is painful when walking, or applying pressure. Her foot swells on and off. Patient sees Dr. Francisco and has hx of right knee Arthroscopic sx many years ago. Allergies aspirin [Aspirin] Allergy (Intermediate, Verified 08/31/23 11:05) HIVES, rash Medication List - Last Reconciled 08/31/23 by Darby Delong MD cephalexin 500 mg PO QID 7 days diphenhydramine HCl (Benadryl) 25 mg PO BEDTIME PRN duloxetine 60 mg PO DAILY loratadine 10 mg PO DAILY meclizine 25 mg PO TID PRN ondansetron 4 mg PO Q8H PRN HPI HPI Comments History of Present Illness Details Here with daughter who interpreted for her. Fell backwards last April, right foot hit the floor. Didn't see anyone at that time. Points to achilles as source of pain. Previous ankle xray 2021 showed calcaneal spur, which she says she is aware of. Last PT 2022 for knee pain. No bracing or injection. 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 MSK: Tender on right Achillis tendon insertion No tenderness over malleoli or plantar fascia. No ankle instability. No acute signs of inflammation, swelling, redness or warmth. Strength is 5/5 in all muscle groups tested. No increased tone noted. Neurological: Neurologic examination of the upper and lower extremities was nonfocal with intact sensation, muscle stretch reflexes and without focal motor deficits . Camilo?s negative bilaterally. Babinski was down going bilaterally. Clonus was negative. Gait is non-antalgic without loss of balance. Results Reviewed Results Reviewed: I independently reviewed the results of the following: Right ankle x-ray 2021 showed calcaneal spur I reviewed records from the following: PCP Assessment & Plan Assessment & Plan (1) Right Achilles tendinitis: Code(s): M76.61 - Achilles tendinitis, right leg (2) Calcaneal spur, right: Code(s): M77.31 - Calcaneal spur, right foot Plan Right achilles tendinitis. Advised elevation and icing when at home. Will refer to PT. We can trial night time splint, to be worn only when in bed, advised not to walk on this. Assessment and plan discussed with patient, and patient was agreeable. All questions were answered thoroughly. Darby Delong MD, UGO Board Certified, [place] Board of Physical Medicine and Rehabilitation (ABPMR) Board Certified, [place] Board of Electrodiagnostic Medicine (ABEM) Orders: Orders PT Evaluation and Treatment Today M76.61 - Achilles tendinitis, right leg, M77.31 - Calcaneal spur, right foot Coding Level of Care Code New Pt Level 4 (86336) Diagnoses Right Achilles tendinitis M76.61 Calcaneal spur, right M77.31
[2023-08-31 11:05] VITALS: BMI 24.0
== END 2023-08-31 11:29 | disposition home or self-care (01) ==
PROVIDERS: PCP Pediatrics; Visit Provider Physical Medicine & Rehabilitation
DX: M76.61 Achilles tendinitis, right leg (principal); M77.31 Calcaneal spur, right foot
CPT/HCPCS: 99204

== ENCOUNTER → 2023-08-31 10:57 | Outpatient (BNVA) | payer OTHER, SELFPAY | PROVIDERS: PCP Pediatrics; Visit Provider Physical Medicine & Rehabilitation | DX: M77.31 Calcaneal spur, right foot (principal); M76.61 Achilles tendinitis, right leg; Z91.81 History of falling | CPT/HCPCS: 99202 ==

== ENCOUNTER 2023-09-26 14:00 | Outpatient (RCR) | payer OTHER, SELFPAY ==
--- NOTE | 2023-09-11 15:25 | MHC.PT.EP ---
[facility] [place] Office [place] [facility] [place] Office [address] Jamie Monroe [address] [phone] F: [phone] F: [phone] F: [phone] F: [phone] Physical Therapy Plan of Care Date of Evaluation: 09/11/23 Date of Surgery: Diagnosis: CALCANEAL SPUR, Rt ACHILLES' TENDONITIS Assessment: 68 YO FEMALE REF TO PT W APPROX 2 MONTH H/O Rt ACHILLES' PAIN-> SHE FEELS ONSET GRADUALLY S/P FALL IN APR 2023. THE Pt RESIDES ALONE AND HAS A VIDEO SPECIALIST APPROX 15 HRS/WK. OBJECTIVE FINDINGS: LIMITED ANKLE DF AND EVER DMITRY, TERMINAL Rt KNEE EXTEN, Rt LE POSTERIOR CHAIN SOFT TISSUE RESTRICTION, AND PAIN Rt DISTAL ACHILLES' TENDON JUNCTION. FUNCTIONALLY, THE Pt HAS DECR BARBRA TO STANDING, INCR AMB-> W ALTERED GAIT MECH, AND INCR DIFFIC W STAIR NAVIGATION. THE Pt WOULD BENEFIT FROM PT TO ADDRESS THE ABOVE FINDINGS , DEV A HEP, AND GUIDE HER ON REGAINING HER FUNCTIONAL INDEPENDENCE. Frequency and Duration: The patient will be seen 2 x WK x 4 WKS Short Term Goals: *INITIATE HEP TO INCREASE ROM Rt ANKLE DF & EVERSION WELL INCR Rt KNEE TERMINAL EXT *IMPROVE SOFT TISSUE MOBILITY IN POSTERIOR CHAIN *DECR PAIN IN Rt ACHILLES TO 2-3/10 *IMPROVE FUNCTIONAL STRENGTH IN Rt LE Landing Signal Officer Goals: *Pt INDEP W HEP AND SX MGMT TECHN *Pt DEMON EFFICIENT GAIT ON LEVEL AND STAIRS *Pt DEMON SLS Rt x 10 SEC *Pt PERF 10 HEEL RAISES Rt Treatment Plan: Modalities to reduce pain, spasms and effusion. Manual therapy to restore motion and function. Therapeutic exercise to improve strength and flexibility. Neuromuscular re-education for posture and balance. Therapeutic activities to return to functional activities of daily living. Electronically signed by: PARESH VALDEZPT Please sign and return to therapist. Thank you for your referral.
--- NOTE | 2024-01-12 11:59 | MHC.PT.DC ---
[facility] [place] Office [place] Office [place] Office [address] Jamie Monroe [address] [phone] F: [phone] F: [phone] F: [phone] F: [phone] Physical Therapy Discharge Report Diagnosis: CALCANEAL SPUR, Rt ACHILLES' TENDONITIS Date of Surgery: Date of Evaluation: 09/11/23 Date of Discharge: 01/12/24 Treatments to Date: 2 Cancellations to Date: 4 No Shows to Date: 2 Discharge Status: Improved Function Independent with HEP Patient Elected to Stop Visit Non-compliance Discharge Summary: THE Pt WAS MOTIVATED AND PROGRESSING WELL IN PT-> SHE WAS PERF THER ACTIVITIES IN STANDING, INCR WT BEARING W/O ANY EXACERB OF HER SXS -> WE WERE EMPHASIZING HIP STABILIZATION. THE Pt IS DISCHARGED PER PT ATTENDANCE POLICY. Electronically signed by: PARESH VALDEZ,PT Please sign and return to therapist. Thank you for your referral.
== END 2024-01-12 12:00 | disposition home or self-care (01) ==
LOC: HO.PT 14:00
PROVIDERS: PCP Pediatrics; Visit Provider Physical Medicine & Rehabilitation
DX: M77.31 Calcaneal spur, right foot (principal); M76.61 Achilles tendinitis, right leg
CPT/HCPCS: 97110; 97140; 97162; 97530

== ENCOUNTER 2023-11-01 11:25 | Outpatient (REF) | payer OTHER, SELFPAY ==
--- NOTE | ~2023-11-01 | XR_ITS ---
EXAM: X-RAYS RIGHT KNEE X-RAYS RIGHT ANKLE CLINICAL INFORMATION: Achilles tendinitis right leg, compared to previous. COMPARISON: Right ankle 11/29/2021. Right knee 08/12/2021. TECHNIQUE: 3 views right knee. 3 views right ankle. FINDINGS: Right knee: The bones are diffusely demineralized. Trace joint effusion. Moderate narrowing of the medial compartment with medial marginal osteophytes. Degenerative changes with joint space narrowing and hypertrophic change in the patellofemoral joint. Right ankle: Persistent small plantar calcaneal spur. Redemonstration of moderate spurring at the dorsal aspect of the calcaneus at site of Achilles tendon insertion with increased calcification since 2021 exam. Ankle mortise is preserved. Lateral soft tissue swelling at the ankle. XR/XR ankle RT 2V IMPRESSION: 1. Moderate degenerative changes right knee. 2. Persistent small plantar calcaneal spur. Redemonstration of moderate spurring at the dorsal aspect of the calcaneus at site of Achilles tendon insertion with increased calcification since 2021 exam. 3. No displaced fracture. Recommend follow up imaging in 10-14 days if fracture is suspected.
--- NOTE | ~2023-11-01 | XR_ITS ---
EXAM: X-RAYS RIGHT KNEE X-RAYS RIGHT ANKLE CLINICAL INFORMATION: Achilles tendinitis right leg, compared to previous. COMPARISON: Right ankle 11/29/2021. Right knee 08/12/2021. TECHNIQUE: 3 views right knee. 3 views right ankle. FINDINGS: Right knee: The bones are diffusely demineralized. Trace joint effusion. Moderate narrowing of the medial compartment with medial marginal osteophytes. Degenerative changes with joint space narrowing and hypertrophic change in the patellofemoral joint. Right ankle: Persistent small plantar calcaneal spur. Redemonstration of moderate spurring at the dorsal aspect of the calcaneus at site of Achilles tendon insertion with increased calcification since 2021 exam. Ankle mortise is preserved. Lateral soft tissue swelling at the ankle. XR/XR knee RT 3V IMPRESSION: 1. Moderate degenerative changes right knee. 2. Persistent small plantar calcaneal spur. Redemonstration of moderate spurring at the dorsal aspect of the calcaneus at site of Achilles tendon insertion with increased calcification since 2021 exam. 3. No displaced fracture. Recommend follow up imaging in 10-14 days if fracture is suspected.
== END 2023-11-01 11:26 | disposition home or self-care (01) ==
LOC: HO.HOSX 11:25
PROVIDERS: PCP Pediatrics; Visit Provider Physical Medicine & Rehabilitation
DX: M17.11 Unilateral primary osteoarthritis, right knee (principal); M77.31 Calcaneal spur, right foot; M76.61 Achilles tendinitis, right leg
CPT/HCPCS: 73562; 73600; 99212

== ENCOUNTER 2023-11-01 11:25 | Outpatient (AMB) | payer OTHER, SELFPAY ==
[2023-11-01 11:27] VITALS: BMI 22.6
--- NOTE | 2023-11-01 11:27 | MHC.OFFVIS ---
Vital Signs 11/01/23 11:27 Height 5 ft 11 in Weight 162 lb BMI 22.6 Intake Visit Reasons: OV-Right foot pain Intake Note: Amanda is a 68 year old female who presents today for a follow up of her right achilles tendonitis. At her last visit she was given an Physical Therapy order and a night splint to trial. Patient reports that she is still having pain in the Achilles tendon, increased pain with walking. She is also complaining of pain in the medial aspect of the knee, hx of right knee done with NE Right Knee Injection done with Ozzy Francisco in march of 2023 [employer] Safety Engineer Required: Yes [employer] Safety Engineer Name: [id number] Allergies aspirin [Aspirin] Allergy (Intermediate, Verified 08/31/23 11:05) HIVES, rash Medication List - Last Reconciled 11/01/23 by Darby Delong MD cephalexin 500 mg PO QID 7 days diphenhydramine HCl (Benadryl) 25 mg PO BEDTIME PRN duloxetine 60 mg PO DAILY loratadine 10 mg PO DAILY meclizine 25 mg PO TID PRN ondansetron 4 mg PO Q8H PRN HPI Comments Details: Fell backwards last April, right foot hit the floor. Didn't see anyone at that time. Pointed to achilles as source of pain. Previous ankle xray 2021 showed calcaneal spur, which she says she is aware of. Last PT 2022 for knee pain. No bracing or injection. Patient wears the boot for night time use. Been going to PT. Says pain on plantar fascia is improved with PT, but still has pain on achilles, constant. 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 MSK: Tender on right Achillis tendon insertion. No swelling or redness. No tenderness over malleoli or plantar fascia. No ankle instability. No acute signs of inflammation, swelling, redness or warmth. Strength is 5/5 in all muscle groups tested. No increased tone noted. Neurological: Neurologic examination of the upper and lower extremities was nonfocal with intact sensation, muscle stretch reflexes and without focal motor deficits . Camilo?s negative bilaterally. Babinski was down going bilaterally. Clonus was negative. Gait is non-antalgic without loss of balance. Results Reviewed Results Reviewed: I independently reviewed the results of the following: Right ankle x-ray 2021 showed calcaneal spur Ordering Physician: Danae Sy MD Date of Service: 11/29/21 Procedure(s): XR ankle RT 2V Accession Number(s): [id number] cc: Danae Sy MD~ EXAMINATION: XR ANKLE, RIGHT CLINICAL INFORMATION: Sprain COMPARISON: None TECHNIQUE: AP, lateral, and mortise views of the right ankle. FINDINGS: Bone alignment is normal. No fracture or dislocation is seen. The ankle mortise is normal. There are calcaneal spurs. Soft tissues are otherwise normal. XR/XR ankle RT 2V IMPRESSION: Calcaneal spurs otherwise unremarkable exam. Ordering Physician: Ozzy Francisco MD Date of Service: 08/12/21 Procedure(s): XR knee LT 2V Accession Number(s): [id number] cc: Ozzy Francisco MD~ EXAMINATION: KNEE X-RAY CLINICAL INFORMATION: Pain COMPARISON: Previous x-rays of the right knee August 2016 and left knee February 2018 TECHNIQUE: Standing AP, lateral and sunrise view of both knees FINDINGS: Right: Bone alignment is normal. No fracture or dislocation is seen. There is arthritis at the medial femoral tibial and patellofemoral joints with joint space narrowing and osteophyte formation. There is a small joint effusion. Left: Bone alignment is normal. No fracture or dislocation is seen. There are small osteophytes at the patellofemoral joint. There is no joint effusion. There is a small osteophyte at the quadriceps tendon insertion to the patella. XR/XR knee LT 2V IMPRESSION: Degenerative changes, right greater than left. I reviewed records from the following: Ortho Assessment & Plan Assessment & Plan (1) Arthritis of right knee: Code(s): M17.11 - Unilateral primary osteoarthritis, right knee Category: Medical (2) Right Achilles tendinitis: Code(s): M76.61 - Achilles tendinitis, right leg Category: Medical (3) Calcaneal spur, right: Code(s): M77.31 - Calcaneal spur, right foot Category: Medical Plan Been following patient for right ankle/foot pain. Plantar fascia improved with PT and night splint. Still with signs of achilles tendinitis. Will refer her to Dr. Alejo, Pain Management, for possible right achilles injection under US guidance. Patient eager to proceed with this plan. She wants to follow back with Dr. Francisco for knee injection. Will update xrays today, ankle and knee, right, as last done 2021. Assessment and plan discussed with patient, and patient was agreeable. All questions were answered thoroughly. Darby Delong MD, UGO Board Certified, [place] Board of Physical Medicine and Rehabilitation (ABPMR) Board Certified, [place] Board of Electrodiagnostic Medicine (ABEM) Orders: Orders XR knee RT 3V Today M17.11 - Unilateral primary osteoarthritis, right knee, M76.61 - Achilles tendinitis, right leg, M77.31 - Calcaneal spur, right foot XR ankle RT 2V Today M17.11 - Unilateral primary osteoarthritis, right knee, M76.61 - Achilles tendinitis, right leg, M77.31 - Calcaneal spur, right foot Referrals Pain Management Referral M76.61 - Achilles tendinitis, right leg Medications: Discontinued cephalexin Discontinued Reason: Patient Completed Course 500 mg PO QID 7 days 28 caps 0RF Coding Level of Care Code Est Pt Level 4 (61751) Diagnoses Arthritis of right knee M17.11 Right Achilles tendinitis M76.61 Calcaneal spur, right M77.31
== END 2023-11-01 13:30 | disposition home or self-care (01) ==
LOC: HO.HOS 11:25
PROVIDERS: PCP Pediatrics; Visit Provider Physical Medicine & Rehabilitation
DX: M17.11 Unilateral primary osteoarthritis, right knee (principal); M76.61 Achilles tendinitis, right leg; M77.31 Calcaneal spur, right foot
CPT/HCPCS: 99214

== ENCOUNTER 2023-12-01 10:44 | Outpatient (REF) | payer OTHER, SELFPAY ==
[2023-12-01 14:18] LABS: MANUAL DIFF FLAG NO
[2023-12-01 14:44] LABS: Alanine Aminotransferase 13 U/L (0-31); Alkaline Phosphatase 85 U/L (39-117); Anion Gap 13 (12-20); Aspartate Amino Transferase 14 U/L (5-31); Bilirubin Direct 0.1 mg/dL (0.0-0.5); Bilirubin Total 0.6 mg/dL (0.0-1.0); Blood Urea Nitrogen 17 mg/dL (9-16); Calcium 9.3 mg/dL (8.4-10.2); Carbon Dioxide 26 mmol/L (22-29); Chloride 108 mmol/L (96-108); Cholesterol 292 mg/dL (<200); Estimated Glomerular Filt Rate > 60; Glucose Fasting 100 mg/dL (60-99); HDL Cholesterol 53 mg/dL (>40); LDL Cholesterol Calculated 200 mg/dL (<100); Potassium 4.3 mmol/L (3.3-5.1); Sodium 143 mmol/L (135-145); Total Protein 7.1 g/dL (6.5-8.0); Triglycerides 195 mg/dL (<150)
[2023-12-01 14:46] LABS: Basophils Absolute Auto 0.1 X10*3/uL (0.0-0.2); Eosinophils Absolute Auto 0.1 X10*3/uL (0.0-0.4); Eosinophils Percent Auto 1.6 % (0-4); Hematocrit 39.7 % (37.0-47.0); Hemoglobin 12.9 g/dl (12.0-16.0); Imm Gran Abs Auto 0.02 X10*3/uL (0.00-0.03); Imm Gran Pct Auto 0.3 % (0.0-0.4); Lymphocytes Absolute Auto 1.9 X10*3/uL (1.2-4.9); Lymphocytes Percent Auto 28.6 % (20-40); Mean Corpuscular HGB Conc 32.5 g/dl (31.0-35.0); Mean Corpuscular Hemoglobin 26.6 pg (27.0-33.0); Mean Corpuscular Volume 81.9 fL (80.0-98.0); Mean Platelet Volume 10.2 fL (9.4-12.3); Monocytes Absolute Auto 0.6 X10*3/uL (0.1-1.2); Monocytes Percent Auto 8.4 % (2-11); Neutrophils Absolute Auto 4.1 x10*3/uL (2.0-8.3); Neutrophils Percent Auto 60.1 % (45-73); Platelet Count 307 X10*3/uL (160-400); Red Blood Count 4.85 X10*6/uL (4.20-5.50); Red Cell Distribution Width 12.9 % (11.0-16.0); White Blood Count 6.8 X10*3/uL (4.8-10.8)
[2023-12-01 15:01] LABS: TSH reflex Free T4 1.71 uIU/mL (0.32-4.0)
[2023-12-01 15:10] LABS: Folate 11.8 ng/mL (> or = 4.0); Vitamin B12 321 pg/mL (200-900)
== END 2023-12-01 10:45 | disposition home or self-care (01) ==
LOC: HO.CHCLDS 10:44
PROVIDERS: Visit Provider Pediatrics
DX: Z00.00 Encounter for general adult medical examination without abnormal findings (principal); N64.4 Mastodynia; E78.2 Mixed hyperlipidemia; M77.31 Calcaneal spur, right foot; Z12.11 Encounter for screening for malignant neoplasm of colon
CPT/HCPCS: 36415; 80048; 80061; 80076; 82607; 82746; 84443; 85025

== ENCOUNTER 2023-12-04 10:26 | Outpatient (AMB) | payer OTHER, SELFPAY ==
[2023-12-04 10:39] VITALS: BMI 35.1
--- NOTE | 2023-12-04 10:39 | MHC.OFFVIS ---
Vital Signs 12/04/23 10:39 Height 4 ft 11 in Weight 174 lb BMI 35.1 Intake Visit Reasons: O/V right knee injection Intake Note: Amanda, 68 yr old female, presents today for a RT knee pain. Engineering Surveyor Required: Yes Allergies aspirin [Aspirin] Allergy (Intermediate, Verified 12/04/23 10:39) HIVES, rash HPI HPI O/V right knee injection: Details: Amanda comes in today with right knee pain. Her last injection was approximately 7 months ago and was very helpful. She continues to describe pain with ambulation in the right knee. 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 Physical Exam Vital Signs: BMI result Body Mass Index 35.1 Const General: no acute distress, alert and awake Orientation/consciousness: patient oriented x3 HEENT Head: Yes normocephalic and Yes atraumatic Eyes EOM: EOMs intact bilaterally Resp Effort & Inspection: normal respiratory effort and able to speak in complete sentences Cardio Jugular venous distension: no JVD Skin General skin exam: turgor normal Rashes: no rashes Neuro General: patient oriented x3 Extrem Other: Right Knee: Skin C/D/I No effusion TTP medial ocmpartment Psych Appearance: grossly normal Affect: normal affect Attitude: cooperative Office Procedures Joint Injection/Drain Joint Injection/Drain Details: Injected 1 mL of Decadron and 3 mL 1% lidocaine and 3 mL of 0.25% Marcaine. Site was prepped using aseptic technique. Patient tolerated the procedure well. Primary Site: right knee Approach Used: anterolateral Coding 87488 - Large joint Procedure code (CPT) selection complete Assessment & Plan Assessment & Plan (1) Arthritis of right knee: Code(s): M17.11 - Unilateral primary osteoarthritis, right knee Category: Medical Plan: Amanda is a 68-year-old woman with right knee osteoarthritis. Injections have been helpful. The last 1 was over 7 months ago. I injected her right knee again today without incident. She may follow up as needed. Coding Level of Care Code Est Pt Level 3 (68983) Diagnoses Arthritis of right knee M17.11 CPT Codes Coding - 91712 Large joint: 96057 - Large joint ([id number])
== END 2023-12-04 11:41 | disposition home or self-care (01) ==
PROVIDERS: PCP Pediatrics; Visit Provider Orthopaedic Surgery
DX: M17.11 Unilateral primary osteoarthritis, right knee (principal)
CPT/HCPCS: 20610; 99213

== ENCOUNTER → 2023-12-04 10:26 | Outpatient (BNVA) | payer OTHER, SELFPAY | PROVIDERS: PCP Pediatrics; Visit Provider Orthopaedic Surgery | DX: M17.11 Unilateral primary osteoarthritis, right knee (principal) | CPT/HCPCS: 20610; 99212; J0665; J1100 ==

== ENCOUNTER 2023-12-22 09:31 | Outpatient (AMB) | payer OTHER, SELFPAY ==
--- NOTE | 2023-12-22 09:32 | A.OFFVIS_ITS ---
Vital Signs 12/22/23 09:34 Height 4 ft 11 in Weight 176 lb BMI 35.5 BP 152/69 H Blood Pressure Location Lt brachial Position Sitting Respiration 14 Pulse 92 Pulse Source Pulse Oximeter Pulse Oximetry (%) 98 Oxygen Delivery Method Room Air Intake Visit Reasons: Achilles Tendinitis Right Leg/Injection Allergies aspirin [Aspirin] Allergy (Intermediate, Verified 12/22/23 09:35) HIVES, rash Medication List - Last Reconciled 12/22/23 by Jennifer Marks LPN cetirizine 10 mg PO DAILY cholecalciferol (vitamin D3) PO diphenhydramine HCl (Benadryl) 25 mg PO BEDTIME PRN duloxetine 60 mg PO DAILY fluticasone propionate 50 mcg/actuation 1 spray intranasal DAILY loratadine 10 mg PO DAILY meclizine 25 mg PO TID PRN omeprazole 20 mg PO DAILY ondansetron 4 mg PO Q8H PRN oxybutynin chloride ER 10 mg PO DAILY HPI HPI Achilles Tendinitis Right Leg/Injection: Details: 68-year-old female who presents today to the office for an evaluation of Achilles Tendinitis, right leg and injection. She has a history of right knee pain that started since her surgery in 2017. She has been receiving right knee injections for pain relief from Dr. Francisco. She reports right foot pain that started after she fell in April 2023. She fell backward and hit the floor on her back, and she is having pain in her foot as well. She is not sure how she injured her foot. Pain is mainly on her Ach illes and is painful when walking, or applying pressure. Her foot swells on and off. A previous ankle x-ray from 2021 showed a calcaneal spur. She did physical therapy for foot pain. She uses a night splint. 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 Alert and oriented. Mood and affect appropriate. Follows and participates in conversation appropriately. Respiratory effort is unlabored. Able to transition from sit to stand unassisted. Ambulates with bilaterally normal heel strike and toe off. Tenderness overlying the right Achilles tendon. Ultrasound exam of the right Achilles tendon shows fluid accumulation deep to the tendon with mild degeneration. No noticeable Terrace. Office Procedures Joint Injection/Drain Joint Injection/Drain Details: Right Achilles tendon ultrasound guided injection Primary Site: other (right Achilles tendon) Prep: site was prepped using sterile technique Injected: 40 mg of, Kenalog and with 3 mL of (ropivacaine 0.25%) Approach Used: other (US guided, short axis approach) Procedure: The patient tolerated the procedure well Coding Details: An ultrasound image of the injection was taken and stored in the permanent record. Procedure code (CPT) selection complete Results Reviewed Results Reviewed: No imaging is available for review. Assessment & Plan Assessment & Plan (1) Right Achilles tendinitis: Code(s): M76.61 - Achilles tendinitis, right leg Category: Medical Plan The patient is already going for physical therapy per Dr. Whitlock's recommendation. However, she reports that she has mostly been focusing on the plantar symptoms. I asked the patient to bring up the Achilles tendon with the physical therapist and to focus on exercises specifically for the Achilles tendonitis/degeneration. Hopefully, she would be able to participate more fully following the steroid injection. Patient is status post right Achilles tendon, ultrasound guided, injection. Patient tolerated procedure well and was discharged home in stable condition wi th discharge instructions.? All questions were answered. Advised trying ankle bracing for support and relief. Follow-up as needed. Scribed for Dr. Alejo by Raoul Lincoln, medical records specialist, on 12/22/2023. I, Dr. Alejo, have personally reviewed and agree with the information entered by the scribe. Coding Level of Care Code New Pt Level 4 (23734) Diagnoses Right Achilles tendinitis M76.61
[2023-12-22 09:34] VITALS: BP 152/69; PULSE 92; RESP 14; O2SAT 98; BMI 35.5
== END 2023-12-22 09:50 | disposition home or self-care (01) ==
PROVIDERS: PCP Pediatrics; Visit Provider Internal Medicine
DX: M76.61 Achilles tendinitis, right leg (principal)
CPT/HCPCS: 20550; 99204

== ENCOUNTER → 2023-12-22 09:31 | Outpatient (BNVA) | payer OTHER, SELFPAY | PROVIDERS: PCP Pediatrics; Visit Provider Internal Medicine | DX: M76.61 Achilles tendinitis, right leg (principal) | CPT/HCPCS: 20550; 99202 ==

== ENCOUNTER 2023-12-27 13:58 | Outpatient (REF) | payer OTHER, SELFPAY ==
--- NOTE | ~2023-12-27 | US_ITS ---
EXAMINATION: MM DIAGNOSTIC DIGITAL BREAST TOMOSYNTHESIS, BILATERAL US BREAST LIMITED, LEFT MAMMOGRAPHY: CLINICAL INFORMATION: 68-year-old female complaining of diffuse left breast pain spanning from left axillary region to entire left breast. The patient's provider felt a small oval lump at the 5:00 axis anterior left breast, which the patient does not feel.. COMPARISON: Mammography: 12/29/2022, 11/17/2020, and dating back to 2017. TECHNIQUE: Digital breast tomosynthesis is performed in both the craniocaudal and mediolateral oblique views along with computer-aided detection (CAD). Synthesized 2D images are generated from the tomosynthesis. FINDINGS: The breasts are heterogeneously dense, which may obscure small masses (ACR BI-RADS breast composition Category c). There is a stable somewhat nodular heterogeneously dense parenchymal pattern in both breasts. The overall appearance has remained unchanged as far back as 2017. No suspicious masses, suspicious grouped calcifications, or regions of architectural distortion in either breast. There are 2 stable nodular asymmetries in the anterior left breast at the approximate 6:00 and 8:00 positions, anterior one third, which proved to represent small cysts on previous ultrasound. The more anterior at 8:00 measures 7 mm in diameter, and the more posterior at 8:00 measures 3 mm in diameter. Findings are unchanged using similar measurement technique. There is no mammographic abnormality to correlate with diffuse breast pain radiating to left axilla. ULTRASOUND: CLINICAL INFORMATION: As above. COMPARISON: 09/26/2019 TECHNIQUE: Targeted sonographic evaluation left breast was performed using a high frequency linear transducer. Attention was given to the 5-6 o'clock axis in the region of palpable concern, and all 4 quadrants of the left breast in the regions of breast pain. Selected archived documentation. FINDINGS: LEFT BREAST: -At 8:00, 4 cm from the nipple, there is an unchanged 4 x 3 x 3 mm simple cyst, benign. -At 6:00, 2 cm from the nipple, there is a slightly larger simple cyst measuring 5 x 6 x 7 mm, correlating with the palpable focus of concern. Finding is benign. -Otherwise, scanning of all 4 quadrants of the left breast demonstrate no additional abnormal findings. No correlates to the regions of breast pain are identified. Recommend clinical management. US/US breast LT limited mamm only IMPRESSION: -There are no findings suspicious for malignancy in either breast. -There are 2 subcentimeter cysts in the left breast at 6:00 and 8:00, of which the 6:00 correlates well with the region of palpable concern. Finding is benign. -There are no mammographic or sonographic correlates to the regions of diffuse left breast pain. Recommend clinical management and follow-up. -Otherwise, recommend resuming routine annual screening mammography. OVERALL ASSESSMENT: Mammography: BI-RADS 2 - Benign Findings Ultrasound: BI-RADS 2 - Benign Findings RECOMMENDATION: 1. Patient should be managed based on the clinical impression. 2. Otherwise, routine annual screening mammography. This patient's information was entered into a reminder system with a target due date for their next mammogram.
== END 2023-12-27 13:59 | disposition home or self-care (01) ==
LOC: HO.MAMMO 13:58
PROVIDERS: PCP Pediatrics; Visit Provider Pediatrics
DX: N64.4 Mastodynia (principal)
CPT/HCPCS: 76642; 77062; 77066

== ENCOUNTER → 2023-12-27 14:00 | Outpatient (BNV) | payer OTHER, SELFPAY | PROVIDERS: PCP Pediatrics; Visit Provider Radiology Diagnostic Radiology | DX: N64.4 Mastodynia (principal); N63.24 Unspecified lump in the left breast, lower inner quadrant | CPT/HCPCS: 76642; 77066; G0279 ==

== ENCOUNTER 2025-01-17 11:49 | Outpatient (REF) | payer OTHER, SELFPAY ==
--- OUTSIDE RECORDS SUMMARY | 2025-01-17 11:52 | XMS_ITS | Encounter Summary ---
Author Organization [employer] Address [address] [place] [address] Care Team Providers Care Jowl Trimmer Name Role Phone Danae Sy MD Primary Care Provider [phone] Encounter Details Date Type Department Care Team (Latest Contact Info) Description 01/16/2025 Travel Social History Tobacco Use Types Packs/Day Years Used Date Smoking Tobacco: Never Passive Smoke Exposure: Never Smokeless Tobacco: Never Depression Answer Date Recorded Patient Health Questionnaire-9 Score 5 01/16/2025 Patient Health Questionnaire-9 Score 5 01/16/2025 Last PHQ-9: Questionnaire Data Not on file 0 01/16/2025 Housing Stability Answer Date Recorded What is your housing situation today? I have margarita ernandez 01/16/[address] you li ve. Do you have problems with any of the following? None of the above 01/16/2025 Food Insecurity Answer Date Recorded Within the past 12 months, y ou worried that your food would run out before you got money to buy more: Never True 01/16/2025 Within the past 12 months,th e food you bought just didn't last and you didn't have enough money to get more: Never True 12/2024 Transportation Answer Date Recorded In the past 12 months, has l ack of transportation kept you from medical appts, meetings, work or from getting things needed for daily living? No 01/16/2025 Utilities Answer Date Recorded In the past 12 months, has t he electric, gas, oil or water company threatened to shut off services in your home? No 01/16/2025 Depression Answer Date Recorded Patient Health Questionnaire-2 Score 1 01/16/2025 Internet Access Answer Date Recorded Internet Access Q1 Yes 01/16/2025 Internet Access Q2 Not on file 01/16/2025 Comments No Sex and Gender Information Value Date Recorded Sex Assigned at Female 04/11/2022 10:14 AM EDT Legal Sex Female 10:14 AM EDT Gender Identity Female 04/11/2022 10:14 AM EDT Sexual Orientation Straight 04/11/2022 10 :14 AM EDT documented as of this encounter Functional Status * Over the past 2 weeks, how often have you been bothered by any of the following problems? Question Answer Date of Assessment Author Patient Health Questionnaire -2 Score 1 01/16/2025 1:40 PM EDT Armani Torres MA * Little interest or pleasure in doing things Answer Date of Assessment Author Several days 01/16/2025 1:40 PM EDT Jessica Torres MA * Feeling down, depressed, or hopeless Answer Date of Assessment Author Not at all 01/16/2025 1:40 PM EDT Jessica Torres MA * Trouble falling or staying asleep, or sleeping too much Answer Date of Assessment Author Several days 01/16/2025 1:40 PM EDT Jessica Torres MA * Feeling tired or having little energy Answer Date of Assessment Author Nearly every day 01/16/2025 1:40 PM EDT Jessica España MA * Poor appetite or overeating Answer Date of Assessment Author Not at all 01/16/2025 1:40 PM EDT Jessica Torres MA * Feeling bad about yourself - or that you are a failure or have let yourself or your family down Answer Date of Assessment Author Not at all 01/16/2025 1:40 PM EDT Jessica Torres MA * Trouble concentrating on things, such as reading the newspaper or watching television Answer Date of Assessment Author Not at all 01/16/2025 1:40 PM EDJessica Petersen MA * Moving or speaking so slowly that other people could have noticed? Or the opposite - being so fidgety or restless that you have been moving around a lot more than usual. Answer Date of Assessment Author Not at all 01/16/2025 1:40 PM Jessica Andrade MA * Thoughts that you would be better off or hurting yourself in some way Answer Date of Assessment Author Not at all 01/16/2025 1:40 PM EDT Jessica Torres MA * Patient Health Questionnaire-9 Score Answer Date of Assessment Author 5 01/16/2025 1:40 PM EDT Jessica Torres MA * How difficult have these problems made it for you to do your work, take care of things at home, or get along with other people? Answer Date of Assessment Author Not difficult at all 01/16/2025 1:40 PM EDT Jessica Griffith MA documented as of this encounter Plan of Treatment Upcoming Encounters Date Type Department Care Team (Late st Contact Info) Description 02/07/2025 2:45 PM EDT Office Visit [facility] [address] [place] [address] Calixto Caro MD [address] [place] [address] documented as of this encounter Visit Diagnoses Not on filedocumented in this encounter Additional Health Concerns Assessment Noted Time PHQ-9 Depression Total Score: 5 01/17/20 25 1:40 PM EDT documented as of this encounter Care Teams Jowl Trimmer Relationship Specialty Start Date End Date Danae Sy MD [address] [place] [address] PCP - General Family Medicine 06/12/18 documented as of this encounter
[2025-01-17 13:24] LABS: MANUAL DIFF FLAG NO
[2025-01-17 13:44] LABS: Hematocrit 41.4 % (37.0-47.0); Hemoglobin 13.3 g/dl (12.0-16.0); Imm Gran Abs Auto 0.03 X10*3/uL (0.00-0.03); Imm Gran Pct Auto 0.5 % (0.0-0.4); Lymphocytes Absolute Auto 2.2 X10*3/uL (1.2-4.9); Mean Corpuscular HGB Conc 32.1 g/dl (31.0-35.0); Mean Corpuscular Hemoglobin 26.8 pg (27.0-33.0); Mean Corpuscular Volume 83.5 fL (80.0-98.0); NRBC Abs Auto 0.000 X10*3/uL (0.0-0.012); NRBC Pct Auto 0.0 /100WBC (0.0-0.2); Platelet Count 363 X10*3/uL (160-400); Red Blood Count 4.96 X10*6/uL (4.20-5.50); White Blood Count 6.6 X10*3/uL (4.8-10.8)
[2025-01-17 14:02] LABS: Alanine Aminotransferase 21 U/L (0-31); Albumin Level 4.3 g/dL (3.5-5.0); Alkaline Phosphatase 88 U/L (39-117); Anion Gap 12 (12-20); Aspartate Amino Transferase 25 U/L (5-31); Blood Urea Nitrogen 11 mg/dL (9-16); Calcium 8.9 mg/dL (8.4-10.2); Carbon Dioxide 26 mmol/L (22-29); Chloride 107 mmol/L (96-108); Cholesterol 317 mg/dL (<200); Estimated Glomerular Filt Rate > 60; HDL Cholesterol 54 mg/dL (>40); Potassium 4.3 mmol/L (3.3-5.1); Sodium 141 mmol/L (135-145); Total Protein 7.2 g/dL (6.5-8.0); Triglycerides 235 mg/dL (<150); Uric Acid 4.6 mg/dL (2.4-5.7)
== END 2025-01-17 11:50 | disposition home or self-care (01) ==
LOC: HO.HHCL 11:49
PROVIDERS: PCP Pediatrics; Visit Provider Pediatrics
DX: Z00.00 Encounter for general adult medical examination without abnormal findings (principal); K21.9 Gastro-esophageal reflux disease without esophagitis; E78.2 Mixed hyperlipidemia; N39.41 Urge incontinence; M79.7 Fibromyalgia; Z71.3 Dietary counseling and surveillance; Z71.82 Exercise counseling
CPT/HCPCS: 36415; 80048; 80061; 80076; 82306; 84550; 85025; 85652

== ENCOUNTER 2025-03-05 10:00 | Outpatient (REF) | payer OTHER, SELFPAY ==
--- NOTE | ~2025-03-05 | CT_ITS ---
EXAMINATION: CT HEAD WITHOUT CONTRAST CLINICAL INFORMATION: Increasing frequency of chronic headaches COMPARISON: None available. TECHNIQUE: Contiguous axial imaging was performed from the skull base to vertex without intravenous administration of contrast. This CT examination was performed using dose optimization techniques as appropriate, variously including the following: *Automated exposure control *Adjustment of mA and/or kV according to patient size (this includes techniques or standardized protocols for targeted exams where dose is matched to indication/reason for exam; i.e. extremities or head) *Use of iterative reconstruction technique FINDINGS: There is no acute ischemic change. There is no intracranial hemorrhage. There is no mass-effect or midline shift. Basal cisterns and ventricles are within normal limits for age/cerebral volume. Orbits are symmetrical and unremarkable. Paranasal sinuses and mastoid air cells are pneumatized. There are no bony abnormalities. CT/CT head/brain wo IV con IMPRESSION: No acute intracranial abnormality. Electronically signed by: Mohinder Mark MD 03/05/2025 10:44 AM EDT
--- OUTSIDE RECORDS SUMMARY | 2025-03-05 12:13 | XMS_ITS | Clinical Summary ---
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 75 mL 1 2 Active hydrocortisone 0.5 % creamIndications :Periorbital dermatitis Apply topically 2 times daily. For 3 days, bulgarian 15 g 5 Active cetirizine (ZyrTEC) 10 MG tablet TAKE 1 TABLET BY MOUTH EVERY DAY IN THE MORNING 90 tablet 3 5 Active oxybutynin XL (Ditropan-XL) 10 MG 24 hr tabletIndication s:Urge incontinence of urine Take 1 tablet (10 mg) by mouth Once per day. 90 tablet 2 5 Active omeprazole (PriLOSEC) [address] capsuleIndicatio ns:Gastroesophag eal reflux disease without esophagitis TAKE 1 CAPSULE BY MOUTH EVERY DAY IN THE MORNING BEFORE BREAKFAST 90 capsule 1 5 Active fluticasone (Flonase) 50 MCG/ACT nasal spray SPRAY 1 SPRAY INTO EACH NOSTRIL EVERY DAY 16 mL 5 5 Active DULoxetine (Cymbalta) [address] Butler ns:Fibromyalgia Take 1 capsule (60 mg) by mouth at bedtime. Do not crush or chew. 90 capsule 1 5 Active cholecalciferol VITAMIN D (Vitamin D-3) 50 MCG (1999 UT) capsule Take 1 capsule (50 mcg) by mouth Once per day. 90 capsule 3 5 Active Active Problems Problem Noted Date Diagnosed Date Periorbital dermatitis 08/21/2024 Assessment & Plan (08/21/2024 3:40 PM EDT): Swelling, erythema and induration to lower periorbital area. Likely periorbital dermatitis. Pt has been using goat milk face wash and aloe vera. -recommended using hydrating facial soap if needed. -prescribed hydrocortisone 0.5 % cream 08/21/24 -referred to cell manager 08/21/24 Anterior knee pain 11/16/2017 Primary fibromyalgia syndrome 10/13/2015 Varicose veins of lower extremity 12/26/2013 Mixed hyperlipidemia 12/13/2011 Gastroesophageal reflux disease 12/13/2011 Allergic rhinitis 12/13/2011 Calcaneal spur 11/28/2011 Encounters Date Type Department Care Team Description 02/07/2025 2:45 PM EDT Office Visit [facility] [address] [place] [phone] Calixto Caro MD Dermatitis (Primary Dx) 02/07/2025 Travel 01/31/2025 Travel 01/31/2025 Telephone [facility] [address] [place] [address] Danae Sy MD Call Back Request 01/16/2025 2:15 PM EDT Office Visit [facility] [address] [place] [address] Danae Sy MD Mixed hyperlipidemia (Primary Dx); Urge incontinence of urine; Gastroesophageal reflux disease without esophagitis; Fibromyalgia; Dietary counseling; Exercise counseling; Routine medical exam; Osteopenia of lumbar spine; Right anterior knee pain; Allergic rhinitis, unspecified seasonality, unspecified trigger; Frequent headaches 01/16/2025 Travel from Last 3 Months Social History Tobacco Use Types Packs/Day Years Used Date Smoking Tobacco: Never Passive Smoke Exposure: Never Smokeless Tobacco: Never Tobacco Cessation:Counseling Given: Not Answered Depression Answer Date Recorded Patient Health Questionnaire-9 [...] Orientation Straight 04/11/2022 10 :14 AM EDT Last Filed Vital Signs Vital Sign Reading Time Taken Comments Blood Pressure 134/82 02/07/2025 2:16 PM EDT Pulse 86 02/07/2025 2:16 PM EDT Temperature 37.2 C (98.9 F) 02/07/2025 2:16 PM EDT Respiratory Rate 20 02/07/2025 2:16 PM EDT Oxygen Saturation 97% 02/07/2025 2:16 PM EDT Inhaled Oxygen Concentration - - Weight 82.6 kg (182 lb) 02/07/2025 2:16 PM EDT Height 147.3 cm (4' 10 ) 02/07/2025 2:16 PM EDT Body Mass Index 38.04 02/07/2025 2:16 PM EDT Plan of Treatment Health Maintenance Due Date Last Done Comments CT Colonography 1955 Colonoscopy 1955 Sigmoidoscopy 1955 Hepatitis C Screening 1975 FIT 01/14/2024 01/13/2023 FOBT 12/28/2024 12/29/2023, 01/13/2023 COVID-19 Vaccine ( season) 2025 Influenza Vaccine (#1) 2025 , 02/12/2021, 03/16/2020, Additional history exists Mammogram 12/26/2025 12/27/2023, 12/10, 01/06/2023, Additional history exists Alcohol/Substance Use Screening 01/16/2026 01/16/2025 Depression Screening 01/16/2026 01/16/2025, 01/17/20 25 SDOH Screening 01/16/2026 01/16/2025 Tobacco Screening 02/07/2026 02/07/2025 DTaP/Tdap/Td Vaccines (2 - Td or Tdap) 07/14/2026 07/14/2016 Colorectal Cancer Screening 12/28/2026 FIT DNA/Cologuard 12/28/2026 12/29/2023 RSV Patients and Patients Aged 60 years or older (1 - 1-dose 75+ series) 02/22/2032 Cervical Cancer Screening Discontinued HPV/Cotest Discontinued 11/08/2018 Zoster Vaccines Completed 03/16/2020, 08/16/2018 Pneumococcal Vaccine: 50+ Years Completed 04/07/2022, 03/16/2020, 12/25/2011 HIB Vaccines Aged Out No longer eligi ble based on patient's age to complete this topic HPV Vaccines Aged Out No longer eligi ble based on patient's age to complete this topic Hepatitis A Vaccines Aged Out No long er eligible based on patient's age to complete this topic Hepatitis B Vaccines Aged Out No long er eligible based on patient's age to complete this topic IPV Vaccines Aged Out No longer eligi ble based on patient's age to complete this topic Meningococcal B Vaccine Aged Out No l onger eligible based on patient's age to complete this topic Meningococcal Vaccine Aged Out No meet landon eligible based on patient's age to complete this topic Pap Smear Discontinued RSV under 20 months Aged Out No longe r eligible based on patient's age to complete this topic Rotavirus Vaccines Aged Out No longer eligible based on patient's age to complete this topic Procedures Procedure Name Priority Date/Time Associated Diagnosis Comments CT HEAD WO CONTRAST Routine 03/05/2025 1 0:24 AM EDT Frequent headaches SED RATE BY MODIFIED WESTERGREN Routine 01/17/2025 11:57 AM EDT Urge incontinence of urine Gastroesophageal reflux disease without esophagitis Fibromyalgia Dietary counseling Exercise counseling Mixed hyperlipidemia Routine medical exam URIC ACID Routine 01/17/2025 11:57 AM EDT Urge incontinence of urine Gastroesophageal reflux disease without esophagitis Fibromyalgia Dietary counseling Exercise counseling Mixed hyperlipidemia Routine medical exam HEPATIC FUNCTION PANEL Routine 11:57 AM EDT Urge incontinence of urine Gastroesophageal reflux disease without esophagitis Fibromyalgia Dietary counseling Exercise counseling Mixed hyperlipidemia Routine medical exam VITAMIN D,25-OH,TOTAL,IA Routine 01/17/2025 11:57 AM EDT Urge incontinence of urine Gastroesophageal reflux disease without esophagitis Fibromyalgia Dietary counseling Exercise counseling Mixed hyperlipidemia Routine medical exam BASIC METABOLIC PANEL, FASTING Routine 01/17/2025 11:57 AM EDT Urge incontinence of urine Gastroesophageal reflux disease without esophagitis Fibromyalgia Dietary counseling Exercise counseling Mixed hyperlipidemia Routine medical exam LIPID PANEL, STANDARD Routine 01/17/2025 11:57 AM EDT Urge incontinence of urine Gastroesophageal reflux disease without esophagitis Fibromyalgia Dietary counseling Exercise counseling Mixed hyperlipidemia Routine medical exam CBC WITH AUTO DIFFERENTIAL Routine 01/17/2025 11:57 AM EDT Urge incontinence of urine Gastroesophageal reflux disease without esophagitis Fibromyalgia Dietary counseling Exercise counseling Mixed hyperlipidemia Routine medical exam LAB COLOGUARD COLON CANCER SCREEN Routine 12/29/2023 10:46 PM EDT Breast pain, left Mixed hyperlipidemia Calcaneal spur of right foot Routine medical exam Colon cancer screening BI MAMMOGRAM DIAGNOSTIC TOMOSYNTHESIS BILATERAL Routine 12/27/2023 2:24 PM EDT Breast pain, left HM FECAL IMMUNOCHEMICAL TEST Routine 01/13/2023 ZZZ HISTORICAL HPV MRNA E6/E7 Routine 11/08/2018 10:53 AM EDT from Last 3 Months or Most Recently Relevant to Health Maintenance Results * CT Head w/o Contrast (03/05/2025 10:24 AM EDT) Anatomical Region Laterality Modality Head, Neck Computed Tomogra phy 03/05/2025 10:2 4 AM EDT Narrative 03/05/2025 10:46 AM EDT [place] [id number] CT Scan Report Signed Patient: Amanda Lopes MR#: [id number] 2 : 1955 Acct:[id number] Age/Sex: 70 / F ADM Date: 03/05/25 Loc: HO.CT Attending Dr: Danae Sy MD Ordering Physician: Danae Sy MD Date of Service: 03/05/25 Procedure(s): CT head/brain wo IV con Accession Number(s): [id number] cc: Danae Sy MD Report Number: [id number]: Total DLP = 705.00 mGy-cm Reason for Exam: Persistent and more frequent headaches EXAMINATION: CT HEAD WITHOUT CONTRAST CLINICAL INFORMATION: Increasing frequency of chronic headaches COMPARISON: None available. TECHNIQUE: Contiguous axial imaging was performed from the skull base to vertex without intravenous administration of contrast. This CT examination was performed using dose optimization techniques as appropriate, variously including the following: *Automated exposure control *Adjustment of mA and/or kV according to patient size (this includes techniques or standardized protocols for targeted exams where dose is matched to indication/reason for exam; i.e. extremities or head) *Use of iterative reconstruction technique FINDINGS: There is no acute ischemic change. There is no intracranial hemorrhage. There is no mass-effect or midline shift. Basal cisterns and ventricles are within normal limits for age/cerebral volume. Orbits are symmetrical and unremarkable. Paranasal sinuses and mastoid air cells are pneumatized. There are no bony abnormalities. CT/CT head/brain wo IV con IMPRESSION: No acute intracranial abnormality. Electronically signed by: Mohinder Mark MD 03/05/2025 10:44 AM EDT RP Dictated By: Mohinder Mark MD Signed By: <Electronically signed by Mohinder Mark MD in OV> 03/05/25 1044 DD/ 1024 TD/TT: 03/05/25 1039 Remote Operations Producer: Procedure Note Donotuseinterpreter, Image - 03/05/[address] [place] [address] [address] Scan Report Signed Patient: Steve Lopes#: [id number] 2 : 1955cct:[id number] Age/Sex: 70 / FADM Date: 03/05/25 Loc: HO.CT Attending Dr: Danae Sy MD Ordering Physician: Danae Sy MD Date of Service: 03/05/25 Procedure(s): CT head/brain wo IV con Accession Number(s): [id number] cc: Danae Sy MD Report Number: [id number]: Total DLP = 705.00 mGy-cm Reason for Exam: Persistent and more frequent headaches EXAMINATION: CT HEAD WITHOUT CONTRAST CLINICAL INFORMATION: Increasing frequency of chronic headaches COMPARISON: None available. TECHNIQUE: Contiguous axial imaging was performed from the skull base to vertex without intravenous administration of contrast. This CT examination was performed using dose optimization techniques as appropriate, variously including the following: *Automated exposure control *Adjustment of mA and/or kV according to patient size (this includes techniques or standardized protocols for targeted exams where dose is matched to indication/reason for exam; i.e. extremities or head) *Use of iterative reconstruction technique FINDINGS: There is no acute ischemic change. There is no intracranial hemorrhage. There is no mass-effect or midline shift. Basal cisterns and ventricles are within normal limits for age/cerebral volume. Orbits are symmetrical and unremarkable. Paranasal sinuses and mastoid air cells are pneumatized. There are no bony abnormalities. CT/CT head/brain wo IV con IMPRESSION: No acute intracranial abnormality. Electronically signed by: Mohinder Mark MD 03/05/2025 10:44 AM EDT Dictated By: Mohinder Mark MD Signed By: <Electronically signed by Mohinder Mark MD in OV> 03/05/25 1044 DD/ 1024 TD/TT: 03/05/25 1039 Remote Operations Producer: us Danae Sy MD IMG CT PROCEDURES Final Resul t * (ABNORMAL) Basic Metabolic Panel, Fasting (01/17/2025 11:57 AM EDT) Sodium 141 135 - 145 mmol/L [facility] Potassium 4.3 3.3 - 5.1 mmol/L [facility] Chloride 107 96 - 108 mmol/L [facility] Carbon Dioxide 26 22 - 29 mmol/L [facility] Anion Gap 12 12 - 20 [facility] Urea Nitrogen (BUN) 11 9 - 16 mg/dL [facility] Creatinine, Serum 0.77 0.5 - 1.4 mg/dL [facility] Estimated Glomerular Filt Rate >60 [facility] Comment:Chronic Kidney Disea se: Estimated GFR < 60 mL/min/1.48q2Glomqg Kidney Disease: Estimated GFR < 15 mL/min/1.73m2 Glucose Fasting 109(H) 60 - 99 mg/dL [facility] Comment:A fasting glucose fr om 100-125 mg/dl is considered impaired(pre-diabetes). Calcium 8.9 8.4 - 10.2 mg/dL [facility] Blood Venous blood specimen / Unknown 01/17/2025 11:57 AM EDT 01/17/2025 1:19 PM EDT us Danae Sy MD LAB BLOOD ORDERABLES Final Re sult Performing Organization Address City/[facility]/ZIP Co de Phone Number [facility] [address] [place] [phone] * Vitamin D, 25-Hydroxy, Total, Immunoassay (01/17/2025 11:57 AM EDT) Vitamin D 25-OH Total 74.9 >30 ng/mL [facility] Comment: Health Based Reference Values*< 20 ng/mL [id number] ng/mL Insufficient> 30 ng/mL Sufficient*Vane BALDERRAMA. N Engl J Med. 2007;357:266-280There is no well-established upper level of normal vitamin Dlevels. Some laboratories use 50 ng/mL as an upper limit ofnormal. However, toxicity is patient-dependent and may occurat any level. Careful correlation with the patient'spresentation is necessary and, if there is concern forvitamin D toxicity, treatment should be consideredirrespective of the serum level.Care must be taken in interpreting Vitamin D results fromdifferent laboratories and methodologies. Published datademonstrated that results from patients undergoinghemodialysis may show a negative bias when tested withvarious automated 25-OH vitamin D assays when compared toLC-MS/MS.When testing samples from patients whose predominant form ofVitamin D is Vitamin D2, such as patients receiving VitaminD2 supplementation, results that are subtherapeutic shouldbe confirmed with another method such as LC-MS/MS. Blood Venous blood specimen / Unknown 01/17/2025 11:57 AM EDT 01/17/2025 1:19 PM EDT Danae Sy MD LAB BLOOD ORDERABLES Final Re sult Performing Organization Address [facility] Co de Phone Number [facility] [address] [place] [phone] * (ABNORMAL) CBC auto differential (01/17/2025 11:57 AM EDT) White Blood Count 6.6 4.8 - 10.8 X10*3/uL [facility] Red Blood Count 4.96 4.20 - 5.50 X10*6/uL [facility] Hemoglobin 13.3 12.0 - 16.0 g/dl [facility] Hematocrit 41.4 37.0 - 47.0 % [facility] Mean Corpuscular Volume 83.5 80.0 - 98.0 fL [facility] Mean Corpuscular Hemoglobin 26.8(L) 27.0 - 33.0 pg [facility] Mean Corpuscular HGB Conc 32.1 31.0 - 35.0 g/dl [facility] Red Cell Distribution Width 13.7 11.0 - 16.0 % [facility] Platelet Count 363 160 - 400 X10*3/uL [facility] Mean Platelet Volume 10.1 9.4 - 12.3 fL [facility] Neutrophils Percent Auto 55.4 45 - 73 % [facility] Imm Gran Pct Auto 0.5(H) 0.0 - 0.4 % [facility] Lymphocytes Percent Auto 33.0 20 - 40 % [facility] Monocytes Percent Auto 7.0 2 - 11 % [facility] Eosinophils Percent Auto 3.2 0 - 4 % [facility] Basophils Percent Auto 0.9 0 - 2 % [facility] NRBC Pct Auto 0.0 0.0 - 0.2 /100WBC [facility] Neutrophils Absolute Auto 3.6 2.0 - 8.3 x10*3/uL [facility] Imm Gran Abs Auto 0.03 0.00 - 0.03 X10*3/uL [facility] Lymphocytes Absolute Auto 2.2 1.2 - 4.9 X10*3/uL [facility] Monocytes Absolute Auto 0.5 0.1 - 1.2 X10*3/uL [facility] Eosinophils Absolute Auto 0.2 0.0 - 0.4 X10*3/uL [facility] Basophils Absolute Auto 0.1 0.0 - 0.2 X10*3/uL [facility] NRBC Abs Auto 0.000 0.0 - 0.012 X10*3/uL [facility] Blood Venous blood specimen / Unknown 01/17/2025 11:57 AM EDT 01/17/2025 1:19 PM EDT Danae Sy MD LAB BLOOD ORDERABLES Final Re sult Performing Organization Address [facility]/ZIP Co de Phone Number [facility] [address] [place] [phone] * (ABNORMAL) Sed Rate by Modified Hoodren (01/17/2025 11:57 AM EDT) Erythrocyte Sedimentation Rate 25(H) 0 - 20 MM/HR [facility] Comment:Patients with polycy themia and many hemoglobin abnormalitiesmay have depressed sed rates whereas patients with anemiamay have elevated sed rates. Blood Venous blood specimen / Unknown 01/17/2025 11:57 AM EDT 01/17/2025 1:19 PM EDT us Danae Sy MD LAB BLOOD ORDERABLES Final Re sult Performing Organization Address [facility] de Phone Number [facility] [address] [place] [address] [phone] * Uric acid (01/17/2025 11:57 AM EDT) Uric Acid 4.6 2.4 - 5.7 mg/dL [facility] Blood Venous blood specimen / Unknown 01/17/2025 11:57 AM EDT 01/17/2025 1:19 PM EDT us Danae Sy MD LAB BLOOD ORDERABLES Final Re sult Performing Organization Address [facility] Co de Phone Number [facility] [address] [place] [phone] * Hepatic Function Panel (01/17/2025 11:57 AM EDT) Bilirubin, Total 0.6 0.0 - 1.0 mg/dL [facility] Bilirubin, Direct 0.2 0.0 - 0.5 mg/dL [facility] Aspartate Amino Transferase 25 5 - 31 U/L [facility] Alanine Aminotransferase 21 0 - 31 U/L [facility] Total Protein 7.2 6.5 - 8.0 g/dL [facility] Albumin Level 4.3 3.5 - 5.0 g/dL [facility] Alkaline Phosphatase 88 39 - 117 U/L [facility] Blood Venous blood specimen / Unknown 01/17/2025 11:57 AM EDT 01/17/2025 1:19 PM EDT us Danae Sy MD LAB BLOOD ORDERABLES Final Re sult Performing Organization Address City/State/[facility] Co de Phone Number [facility] [address] [place] [phone] * (ABNORMAL) Lipid Panel, Standard (01/17/2025 11:57 AM EDT) Triglycerides 235(H) <150 mg/dL [facility] Comment:Desirable Triglyceri de: less than 150 mg/dLBorderline High Triglyceride 150-199 mg/dLHigh Triglyceride: 200-499 mg/dLVery High Triglyceride: greater than or equal to 5OO mg/dL Cholesterol 317(H) <200 mg/dL [facility] Comment:Desirable Cholestero l: less than 200 mg/dLBorderline High Cholesterol: 200-239 mg/dLHigh Cholesterol: greater than 239 mg/dL LDL Cholesterol Calculated 216(H) <100 mg/dL [facility] Comment:Desirable LDL: less than 100 mg/dLNear Optimal/Above Optimal LDL: 110- 129 mg/dLBorderline High LDL: 130-159 mg/dLHigh LDL: 160-189 mg/dLVery High LDL: greater than or equal to 190 mg/dL HDL Cholesterol 54 >40 mg/dL [facility] Comment:Desirable HDL: great er than 40 mg/dL Note: This HDL assay may give artificially low results in patients with liver disease. Blood Venous blood specimen / Unknown 01/17/2025 11:57 AM EDT 01/17/2025 1:19 PM EDT us Danae Sy MD LAB BLOOD ORDERABLES Final Re sult [facility] [address] [place] [address] [phone] * Cologuard?? colon cancer screening (12/29/2023 10:46 PM EDT) Cologuard Result Negative Negative 01/04/20 1:34 PM EDT [facility] (CLIA #:[id number]) Comment: NEGATIVE TEST RESULT. A negative Cologuard result indicates a low likelihood that a colorectal cancer (CRC) or advanced adenoma (adenomatous polyps with more advanced pre-malignant features) is present. The chance that a person with a negative Cologuard test has a colorectal cancer is less than 1 in 1500 (negative predictive value >99.9%) or has an advanced adenoma is less than 5.3% (negative predictive value 94.7%). These data are based on a prospective cross-sectional study of 10,000 individuals at average risk for colorectal cancer who were screened with both Cologuard and colonoscopy. (Yesenia Bingham et al, N Engl J Med 2014;370(14):2146-4184) The normal value (reference range) for this assay is negative. COLOGUARD RE-SCREENING RECOMMENDATION: Periodic colorectal cancer screening is an important part of preventive healthcare for asymptomatic individuals at average risk for colorectal cancer. Following a negative Cologuard result, the [place] [employer] and U.S. Multi-Society Task Force screening guidelines recommend a Cologuard re-screening interval of 3 years. References: [place] [employer] Guideline for Colorectal Cancer Screening: https://www.cancer.org/cancer/bpssp-yaozuv-utxcfh/pbiiwrclb-omqbitbis-uawuaex/ac s-rec ommendations.html.; Dion GUADALUPE, Alex CROW, Edwar GLASS, Colorectal Cancer Screening: Recommendations for Physicians and Patients from the U.S. Multi-Society Task Force on Colorectal Cancer Screening , Am J Gastroenterology 2017; 112:7847-6036. TEST DESCRIPTION: Composite algorithmic analysis of stool DNA-biomarkers with hemoglobin immunoassay. Quantitative values of individual biomarkers are not reportable and are not associated with individual biomarker result reference ranges. Cologuard is intended for colorectal cancer screening of adults of either sex, 45 years or older, who are at average-risk for colorectal cancer (CRC). Cologuard has been approved for use by the U.S. FDA. The performance of Cologuard was established in a cross sectional study of average-risk adults aged 50-84. Cologuard performance in patients ages 45 to 49 years was estimated by sub-group analysis of near-age groups. Colonoscopies performed for a positive result may find as the most clinically significant lesion: colorectal cancer [4.0%], advanced adenoma (including sessile serrated polyps greater than or equal to 1cm diameter) [20%] or non- advanced adenoma [31%]; or no colorectal neoplasia [45%]. These estimates are derived from a prospective cross-sectional screening study of 10,000 individuals at average risk for colorectal cancer who were screened with both Cologuard and colonoscopy. (Yesenia Redd. et al, N Engl J Med 2014;370(14):0998-8944.) Cologuard may produce a false negative or false positive result (no colorectal cancer or precancerous polyp present at colonoscopy follow up). A negative Cologuard test result does not guarantee the absence of CRC or advanced adenoma (pre-cancer). The current Cologuard screening interval is every 3 years. ([place] [employer] and U.S. Multi-Society Task Force). Cologuard performance data in a 10,000 patient pivotal study using colonoscopy as the reference method can be accessed at the following location: www.[employer]/results. Additional description of the Cologuard test process, warnings and precautions can be found at www.[employer].Quettra. Stool specimen (specimen) Rectal contents / Unknown 12/29/2023 10:46 PM EDT 01/01/2024 10:38 AM EDT Danae Sy MD LAB MOLECULAR DIAGNOSTICS ORD ERABLES Final Result [facility] (CLIA #:[id number]) [address] [place] [address], * BI Mammogram Diagnostic Tomosynthesis Bilateral (12/27/2023 2:24 PM EDT) Anatomical Region Laterality Modality Breast Bilateral Mammography 12/27/2023 2:24 PM EDT Narrative 12/27/2023 4:11 PM EDT [address] [place] [address] Mammography Report Signed Patient: Amanda Lopes MR#: [id number] 2 : 1955 Acct:[id number] Age/Sex: 68 / F ADM Date: 12/27/23 Loc: HO.MAMMO Attending Dr: Danae Sy MD Ordering Physician: Danae Sy MD Results: 2Be nign Findings Date of Service: 12/27/23 Follow Up: 1 Year From [facility] Mammogram Procedure(s): MM tomosynthesis diagnostic BI Accession Number(s): [id number] cc: Danae Sy MD EXAMINATION: MM DIAGNOSTIC DIGITAL BREAST TOMOSYNTHESIS, BILATERAL US BREAST LIMITED, LEFT MAMMOGRAPHY: CLINICAL INFORMATION: 68-year-old female complaining of diffuse left breast pain spanning from left axillary region to entire left breast. The patient's provider felt a small oval lump at the 5:00 axis anterior left breast, which the patient does not feel.. COMPARISON: Mammography: 12/29/2022, 11/17/2020, and dating back to 2017. TECHNIQUE: Digital breast tomosynthesis is performed in both the craniocaudal and mediolateral oblique views along with computer-aided detection (CAD). Synthesized 2D images are generated from the tomosynthesis. FINDINGS: The breasts are heterogeneously dense, which may obscure small masses (ACR BI-RADS breast composition Category c). There is a stable somewhat nodular heterogeneously dense parenchymal pattern in both breasts. The overall appearance has remained unchanged as far back as 2017. No suspicious masses, suspicious grouped calcifications, or regions of architectural distortion in either breast. There are 2 stable nodular asymmetries in the anterior left breast at the approximate 6:00 and 8:00 positions, anterior one third, which proved to represent small cysts on previous ultrasound. The more anterior at 8:00 measures 7 mm in diameter, and the more posterior at 8:00 measures 3 mm in diameter. Findings are unchanged using similar measurement technique. There is no mammographic abnormality to correlate with diffuse breast pain radiating to left axilla. ULTRASOUND: CLINICAL INFORMATION: As above. COMPARISON: 09/26/2019 TECHNIQUE: Targeted sonographic evaluation left breast was performed using a high frequency linear transducer. Attention was given to the 5-6 o'clock axis in the region of palpable concern, and all 4 quadrants of the left breast in the regions of breast pain. Selected archived documentation. FINDINGS: LEFT BREAST: -At 8:00, 4 cm from the nipple, there is an unchanged 4 x 3 x 3 mm simple cyst, benign. -At 6:00, 2 cm from the nipple, there is a slightly larger simple cyst measuring 5 x 6 x 7 mm, correlating with the palpable focus of concern. Finding is benign. -Otherwise, scanning of all 4 quadrants of the left breast demonstrate no additional abnormal findings. No correlates to the regions of breast pain are identified. Recommend clinical management. MM/MM tomosynthesis diagnostic BI IMPRESSION: -There are no findings suspicious for malignancy in either breast. -There are 2 subcentimeter cysts in the left breast at 6:00 and 8:00, of which the 6:00 correlates well with the region of palpable concern. Finding is benign. -There are no mammographic or sonographic correlates to the regions of diffuse left breast pain. Recommend clinical management and follow-up. -Otherwise, recommend resuming routine annual screening mammography. OVERALL ASSESSMENT: Mammography: BI-RADS 2 - Benign Findings Ultrasound: BI-RADS 2 - Benign Findings RECOMMENDATION: 1. Patient should be managed based on the clinical impression. 2. Otherwise, routine annual screening mammography. This patient's information was entered into a reminder system with a target due date for their next mammogram. Dictated By: Gomez Husain MD Signed By: <Electronically signed by Gomez Husain MD in OV> 12/27/23 0153 DD/ 1424 TD/TT: Remote Operations Producer: Procedure Note Donotuseinterpreter, Image - 12/27/2023 [facility] [address] [place], [place] [address] Mammography Report Signed Patient: Steve Lopes#: [id number] 2 : 7Acct:[id number] Age/Sex: 68 / FADM Date: 12/27/23 Loc: HO.MAMMO Attending Dr: Danae Sy MD Ordering Physician: Danae Sy MDResults: 2Be nign Findings Date of Service: 12/27/23Follow Up: 1 Year From Orig inal Mammogram Procedure(s): MM tomosynthesis diagnostic BI Accession Number(s): [id number] cc: Danae Sy MD EXAMINATION: MM DIAGNOSTIC DIGITAL BREAST TOMOSYNTHESIS, BILATERAL US BREAST LIMITED, LEFT MAMMOGRAPHY: CLINICAL INFORMATION: 68-year-old female complaining of diffuse left breast pain spanning from left axillary region to entire left breast. The patient's provider felt a small oval lump at the 5:00 axis anterior left breast, which the patient does not feel.. COMPARISON: Mammography: 12/29/2022, 11/17/2020, and dating back to 2017. TECHNIQUE: Digital breast tomosynthesis is performed in both the craniocaudal and mediolateral oblique views along with computer-aided detection (CAD). Synthesized 2D images are generated from the tomosynthesis. FINDINGS: The breasts are heterogeneously dense, which may obscure small masses (ACR BI-RADS breast composition Category c). There is a stable somewhat nodular heterogeneously dense parenchymal pattern in both breasts. The overall appearance has remained unchanged as far back as 2017. No suspicious masses, suspicious grouped calcifications, or regions of architectural distortion in either breast. There are 2 stable nodular asymmetries in the anterior left breast at the approximate 6:00 and 8:00 positions, anterior one third, which proved to represent small cysts on previous ultrasound. The more anterior at 8:00 measures 7 mm in diameter, and the more posterior at 8:00 measures 3 mm in diameter. Findings are unchanged using similar measurement technique. There is no mammographic abnormality to correlate with diffuse breast pain radiating to left axilla. ULTRASOUND: CLINICAL INFORMATION: As above. COMPARISON: 09/26/2019 TECHNIQUE: Targeted sonographic evaluation left breast was performed using a high frequency linear transducer. Attention was given to the 5-6 o'clock axis in the region of palpable concern, and all 4 quadrants of the left breast in the regions of breast pain. Selected archived documentation. FINDINGS: LEFT BREAST: -At 8:00, 4 cm from the nipple, there is an unchanged 4 x 3 x 3 mm simple cyst, benign. -At 6:00, 2 cm from the nipple, there is a slightly larger simple cyst measuring 5 x 6 x 7 mm, correlating with the palpable focus of concern. Finding is benign. -Otherwise, scanning of all 4 quadrants of the left breast demonstrate no additional abnormal findings. No correlates to the regions of breast pain are identified. Recommend clinical management. MM/MM tomosynthesis diagnostic BI IMPRESSION: -There are no findings suspicious for malignancy in either breast. -There are 2 subcentimeter cysts in the left breast at 6:00 and 8:00, of which the 6:00 correlates well with the region of palpable concern. Finding is benign. -There are no mammographic or sonographic correlates to the regions of diffuse left breast pain. Recommend clinical management and follow-up. -Otherwise, recommend resuming routine annual screening mammography. OVERALL ASSESSMENT: Mammography: BI-RADS 2 - Benign Findings Ultrasound: BI-RADS 2 - Benign Findings RECOMMENDATION: 1. Patient should be managed based on the clinical impression. 2. Otherwise, routine annual screening mammography. This patient's information was entered into a reminder system with a target due date for their next mammogram. Dictated By: Gomez Husain MD Signed By: <Electronically signed by Gomez Husain MD in OV> 12/27/23 1607 DD/ 1424 TD/TT: Remote Operations Producer: Danae Sy MD IM BI PROCEDURES Final Resul t * HM Fecal Immunochemical Test (01/13/2023) Fecal Immunochemical Test Nonreactive Stool Rectal contents / Unknown us Historical Provider HEALTH MAINTENANCE Final Result * HPV mRNA E6/E7 (11/08/2018 10:53 AM EDT) HPV mRNA E6/E7 Not Detected NOT DETECTED [facility] Comment: This test was performed using the APTIMA(R) HPV Assay ([employer] This assay detects E6/E7 viral messenger RNA (mRNA) from 14 high-risk HPV types (16,18,31,33,35,39,45,51, 52,56,58,59,66,68). For additional information please refer to: http://education.WorldWinger/faq/RDC471p9 (This link is being provided for informational/ educational purposes only.) The analytical performance characteristics of this assay have been determined by [employer] [place], [place]. The modifications have not been cleared or approved by the FDA. This assay has been validated pursuant to the CLIA regulations and is used for clinical purposes. Test Performed by [facility], [employer] [place], [address] [place] [address] Da Cantu M.D., Ph.D., Director of Laboratories , CLIA [id number] Please note: Effective 02/22/2016, HPV testing will be performed using [employer]'s APTIMA test which targets mRNA. Detecting mRNA instead of DNA, as in older methods, offers significant improvements in specificity. 11/08/2018 10:5 3 AM EDT Danae Sy MD HISTORICAL/NON ORDERABLE LABS Final Result [facility] [address] from Last 3 Months or Most Recently Relevant to Health Maintenance Insurance [address] [address] [employer] (HMO D-SNP) ROXIE YANEZ [id number] Care Teams Singe Machine Operator Relationship Specialty Start Date End Date Danae Sy MD [address] [place] [id number] PCP - General Family Medicine 06/12/18
--- OUTSIDE RECORDS SUMMARY | 2025-03-05 12:13 | XMS_ITS | Encounter Summary ---
Author Organization [employer] Address [address] [place] [address] Care Team Providers Care Grain Elevator Superintendent Name Role Phone Danae Sy MD Primary Care Provider [phone] Encounter Details Date Type Department Care Team ([facility] st Contact Info) Description 04/21/2023 Abstract [facility] [address] [place] [address] Melania Roach Social History Tobacco Use Types Packs/Day Years Used Date Smoking Tobacco: Never Passive Smoke Exposure: Never Smokeless Tobacco: Never Depression Answer Date Recorded Patient Health Questionnaire-9 Score 1 10/06/2022 Housing Stability Answer Date Recorded What is your housing situation today? I have margarita ernandez 03/29/[address] you li ve. Do you have problems with any of the following? None of the above 03/29/2023 Food Insecurity Answer Date Recorded Within the past 12 months, y ou worried that your food would run out before you got money to buy more: Often true 03/29/2023 Within the past 12 months,th e food you bought just didn't last and you didn't have enough money to get more: Often true Transportation Answer Date Recorded In the past 12 months, has l ack of transportation kept you from medical appts, meetings, work or from getting things needed for daily living? No 03/29/2023 Utilities Answer Date Recorded In the past 12 months, has t he electric, gas, oil or water company threatened to shut off services in your home? No 03/29/2023 Depression Answer Date Recorded Patient Health Questionnaire-2 Score 0 10/06/2022 Comments Unknown Sex and Gender Information Value Date Recorded Sex Assigned at Female 04/11/2022 10:14 AM EDT Legal Sex Female 10:14 AM EDT Gender Identity Female 04/11/2022 10:14 AM EDT Sexual Orientation Straight 04/11/2022 10 :14 AM EDT documented as of this encounter Plan of Treatment Not on file documented as of this encounter Visit Diagnoses Not on filedocumented in this encounter Additional Health Concerns Assessment Noted Time PHQ-9 Depression Total Score: 1 10/07/19 23 2:26 PM EDT documented as of this encounter Care Teams Grain Elevator Superintendent Relationship Specialty Start Date End Date Danae Sy MD [address] [place] [address] PCP - General Family Medicine 06/12/18 documented as of this encounter
== END 2025-03-05 10:01 | disposition home or self-care (01) ==
LOC: HO.CT 10:00
PROVIDERS: PCP Pediatrics; Visit Provider Pediatrics
DX: R51.9 Headache, unspecified (principal)
CPT/HCPCS: 70450

== ENCOUNTER → 2025-03-05 10:04 | Outpatient (BNV) | payer OTHER, SELFPAY | PROVIDERS: PCP Pediatrics; Visit Provider Radiology Diagnostic Radiology | DX: R51.9 Headache, unspecified (principal) | CPT/HCPCS: 70450 ==

== ENCOUNTER 2025-03-10 11:19 | Outpatient (REF) | payer OTHER, SELFPAY ==
--- NOTE | ~2025-03-10 | MM_ITS ---
EXAMINATION: DXA BONE DENSITY AXIAL HISTORY: postmenopausal, low vitamin D, osteopenia TECHNIQUE: [employer] Dual energy absorptiometry (DEXA) of the lumbar spine, total left hip, and femoral neck was performed. COMPARISON: Comparison is made with the prior examination dated 12/17/2022. FINDINGS: The bone mineral density of the lumbar spine is 1.066 g/cm2, corresponding to a T-score of -1.0, and a Z-score of 0.2. This is indicative of normal bone mineral density. This represents a BMD change of 0.4% compared to the prior exam. This is not statistically significant. The bone mineral density of the left total hip is 1.045 g/cm2, corresponding to a T-score of 0.3, and a Z-score of 1.3. This is indicative of normal bone mineral density. This represents a BMD change of -1.2% compared to the prior exam. This is not statistically significant. The bone mineral density of the left femoral neck is 1.019 g/cm2, corresponding to a T-score of -0.1, and a Z-score of 1.1. This is indicative of normal bone mineral density. This represents a BMD change of 0.4% compared to the prior exam. MM/XR DEXA axial skeleton IMPRESSION: Based on bone mineral density, and according to World Health Organization (WHO) criteria, the diagnosis is consistent with normal bone mineral density. Statistically, 68% of repeat scans fall within 1 SD (+/- 0.010 g/cm2 for AP spine L1-L4) and 1 SD (+/- 0.012 g/cm2 for femur total) FRAX is a trademark of the [employer]'s [employer] Metabolic Bone Disease, a World Health Organization (WHO) Collaborating Center. Electronically signed by: French Gilmore MD 03/10/2025 11:43 AM EDT
--- NOTE | ~2025-03-10 | MM_ITS ---
EXAMINATION: MM SCREENING DIGITAL BREAST TOMOSYNTHESIS, BILATERAL CLINICAL INFORMATION: Screening. Asymptomatic. COMPARISON: Mammography: Comparison is made with available priors TECHNIQUE: Digital breast mammography with tomosynthesis is performed in both the craniocaudal and mediolateral oblique views along with computer-aided detection (CAD). FINDINGS: The breasts are heterogeneously dense, which may obscure small masses. Bilateral circumscribed oval masses which wax and wane consistent with benign fibrocystic changes. There are no significant masses, abnormal calcifications, or other abnormalities. MM/MM tomosynthesis screening BI IMPRESSION: No mammographic evidence of malignancy. ASSESSMENT: BI-RADS Category 2: Benign RECOMMENDATION: Routine annual mammography screening. 1 year F/U This examination should not preclude the clinical evaluation of a suspicious palpable abnormality. This patient's information was entered into a reminder system with a target due date for their next mammogram. Electronically signed by: Mariann Anaya DO 03/11/2025 07:04 PM EDT
== END 2025-03-10 11:20 | disposition home or self-care (01) ==
LOC: HO.MAMMO 11:19
PROVIDERS: PCP Pediatrics; Visit Provider Pediatrics
DX: Z12.31 Encounter for screening mammogram for malignant neoplasm of breast (principal); Z13.820 Encounter for screening for osteoporosis; M85.88 Other specified disorders of bone density and structure, other site
CPT/HCPCS: 77063; 77067; 77080

== ENCOUNTER → 2025-03-10 11:30 | Outpatient (BNV) | payer OTHER, SELFPAY | PROVIDERS: PCP Pediatrics; Visit Provider Radiology Diagnostic Radiology | DX: E28.39 Other primary ovarian failure (principal) | CPT/HCPCS: 77063; 77067; 77080 ==